=== PATIENT | male | born 1960 | race Caucasian/White ===

== ENCOUNTER 2016-11-12 08:48 | Outpatient (CLI) | payer BC ==
--- NOTE | ~2016-11-12 | HEMODYNAMI ---
PATIENT:YOEL BERNABE MEDICAL RECORD: [id number] : 62 LOCATION:DAbiolaCAT ADMISSION DATE: 11/12/16 Generatedon:11/12/201611:56 Patient name: YOEL BERNABE Patient #: [id number] : 1960 Date of study: 11/12/2016 Page: Of Hemodynamic Procedure Report Patient Data Patient Demographics Procedure consent was obtained First Name: YOEL Gender: Male Last Name: SRINIVASA : 1960 [facility] Initial: Pankaj Age: 56 year(s) Patient #: [id number] Race: SSN: [id number] Additional ID: [id number] Contact details Address: [address] [place] [address] State: [place] City: [place] Zip code: [address] Past Medical History Allergies: No known allergies Admission Admission Data Admission Date: 11/12/2016 Admission Time: 8:48 Arrival Date: 11/12/2016 Arrival Time: 11:00 Admit Source: Other Insurance Payor: Private health insurance Height (in.): 67 BSA: 2.06 (m2) Height (cm.): 170.18 BMI: 32.73 (kg/m2) Weight (lbs.): 209 Weight (kg.): 94.8 Lab Results Lab Result Date: 11/12/2016 Lab Result Time: 0:00 Biochemistry Name Units Result Min Max BUN mg/dl 18 --(---*)-- 7 18 Creatinine mg/dl 0.8 --(-*--)-- 0.6 1.3 Procedure Procedure Types Cath Procedure Diagnostic Procedure C [facility] w/Coronaries PCI Procedure Coronary Stent Initial Peripheral Cath Diagnostic Procedure Cath Peripheral Vjqiy-Lhgqwtl-Lhk-Off Peripheral vascular Intervention Stent Stent Iliac w/plasty Initial Procedure Description Procedure Date Procedure Date: 11/12/2016 Procedure Start Time: 11:30 Procedure End Time: 11:53 Procedure Staff Name Function Richard Paula MD Performing Physician Romulo Velez RT Scrub Venus Victoria RN Nurse Evan Vuong RT Member Service Representative Lesli Rivas RT Monitor Indication Angina Procedure Data Cath Procedure Fluoroscopy Diagnostic fluoroscopy Total fluoroscopy Time: 6.5 time: 6.5 min min Diagnostic fluoroscopy Total fluoroscopy dose: dose: 1066 mGy 1066 mGy Contrast Material Contrast Material Type Amount (ml) Isovue 370 234 Entry Location Entry Primary Successful Side Size Upsize Upsize Entry Closure Succes sful Closure Location (Fr) 1 (Fr) 2 (Fr) Remarks Device Remarks Femoral Right 5 Fr 6 Fr 6 Fr Vascade artery Short Long Closure System Estimated blood loss: 5 ml Diagnostic catheters Device Type Used For End Catheter Placement Cordis 5Fr Pigtail LV Angiography Catheter (MP) Cordis 5Fr JL 4.0 Left Coronary Catheter (MP) Angiography Cordis 5Fr 3DRC Catheter Right Coronary (MP) Angiography Cordis Infinity 5Fr AR 2 Multi-vessel MOD catheter Angiography [place] Sci 5Fr IMT Multi-vessel Catheter Angiography Procedure Complications No complications Procedure Medications Medication Administration Route Dosage Oxygen NC 2 l/min Heparin Flush Bag added to field 2 bags (1000units/500ml NS) Lidocaine 2% added to field 20 Benadryl I.V. 50 mg Versed I.V. 1 mg Fentanyl I.V. 50 mcg Heparin Bolus I.V. 4000 units Versed I.V. 1 mg Fentanyl I.V. 50 mcg Versed I.V. 1 mg Fentanyl I.V. 50 mcg Hemodynamics Rest BSA: 2.06 (m2) O2 Consumption: Estimated: 251.74 (ml/min) O2 Consumption indexed : Estimated:122.2 (ml/min/m) Heart Rate: 80 (bpm) Pressure Samples Time Site Value (mmHg) Purpose Heart Use Rate(bpm) 11:31 LV 134/18,23 Snapshot 95 Snapshots Pre Cath Intra NCS Post Cath Vital Signs Time Heart Resp SPO2 NIBP (mmHg) Rhythm Pain Sedation Rate (ipm) (%) Status Level (bpm) 11:12:03 71 22 99 140/90(119) NSR 0 (11) 10(A) , No pain 11:16:14 68 21 100 153/98(133) NSR 0 (11) 10(A) , No pain 11:20:24 82 22 100 136/89(114) NSR 0 (11) 10(A) , No pain 11:24:30 89 20 98 126/90(113) NSR 0 (11) 10(A) , No pain 11:28:40 89 20 100 140/83(112) NSR 0 (11) 10(A) , No pain 11:32:52 89 29 100 128/80(101) NSR 0 (11) 10(A) , No pain 11:37:04 91 20 100 126/83(97) NSR 0 (11) 9(A) , No pain 11:41:16 92 13 100 137/82(108) NSR 0 (11) 9(A) , No pain 11:45:30 93 14 99 126/80(104) NSR 0 (11) 9(A) , No pain 11:49:42 93 15 99 122/76(98) NSR 0 (11) 9(A) , No pain 11:51:22 94 14 100 126/75(97) NSR 0 (11) 9(A) , No pain Medications Time Medication Route Dose Verified Delivered Reason Notes Effectiveness by by 11:16:15 Oxygen NC 2 Richard Venus Per physician l/min Nisa Victoria RN 11:16:23 Heparin Flush added 2 Richard Richard used for Bag to bags Nisa Paual MD procedure (1000units/500ml field NS) 11:16:30 Lidocaine 2% added 20ml Richard Richard used for to vial Nisa Paula MD procedure field 11:16:37 Benadryl I.V. 50 mg Richard Venus Per physician Nisa Victoria RN 11:29:18 Versed I.V. 1 mg Richard Venus for sedation Nisa Victoria RN 11:29:27 Fentanyl I.V. 50 Richard Venus for sedation mcg Nisa Victoria RN 11:31:29 Versed I.V. 1 mg Richard Venus for sedation Nisa Victoria RN 11:31:36 Fentanyl I.V. 50 Richard Venus for sedation mcg Nisa Victoria RN 11:33:48 Versed I.V. 1 mg Richard Venus for sedation Nisa Victoria RN 11:33:53 Fentanyl I.V. 50 Richard Venus for sedation mcg Nisa Victoria RN 11:40:05 Heparin Bolus I.V. 4000 Richard Venus for dose units Nisa Victoria RN anticoagulation verified [facility] dr paula Procedure Log Time Note 10:52:24 Evan Vuong RT(R) sent for patient. Start room use. 11:04:28 Informed consent obtained and on chart 11:04:33 Diagnostic Cath Status : Elective 11:04:55 Indication : Angina 11:05:25 Admit Source: Other 11:05:28 Patient Height : 170.18 inches 11:05:36 Patient Weight : 94.8 lbs 11:05:36 Insurance Payor : Private health insurance 11:05:43 Arrival Date: 11/12/2016 11:00:00 AM 11:07:30 Time tracking: Regular hours 11:07:37 Plan of Care:Hemodynamics will remain stable., Cardiac rhythm will remain stable., Comfort level will be maintained., Respiratory function will remain adequate., Patient/ family verbilizes understanding of procedure., Procedure tolerated without complication., Recovers from procedure without complications.. 11:07:52 Patient received from Outpatients to [facility] 1 Alert and oriented. Tansferred to table in Supine position. 11:07:54 Warm blankets applied, and lindsey hugger turned on for patient comfort. 11:07:54 Correct patient and procedure confirmed by team. 11:07:55 ECG and BP/O2 sat monitors applied to patient. 11:11:08 Vital chart was started 11:11:13 Rhythm: sinus rhythm 11:11:14 Full Disclosure recording started 11:12:01 H&P Date Dictated: 11/10/2016 Within 30 days and on chart., H&P Addendum completed by physician on day of procedure. (MUST COMPLETE FOR ALL OUTPATIENTS). 11:12:01 Pre-procedure instructions explained to patient. 11:12:02 Pre-op teaching completed and patient verbalized understanding. 11:12:03 Family in waiting room. 11:12:05 Patient NPO since Midnight. 11:12:11 Patient allergic to No known allergies 11:12:14 Is the patient allergic to Iodine/contrast media? No. 11:12:47 Is patient on blood thinner?Yes 11:12:50 ACC The patient was administered the following blood thiners within the last 24 hours: ACCPlavix 11:12:52 Patient diabetic? No. 11:12:54 Previous problem with sedation/anesthesia? No ? 11:12:56 Snore? Yes 11:12:57 Sleep apnea? No 11:12:57 Deviated septum? No 11:12:58 Opens mouth fully? Yes 11:12:59 Sticks out tongue? Yes 11:13:01 Airway obstruction? No ? 11:13:03 Dentures? Yes IN 11:13:07 Pre procedure: right dorsailis pedis pulse 1+ Palpable, but thready & weak; easily obliterated 11:13:09 Pre procedure: left dorsailis pedis pulse 1+ Palpable, but thready & weak; easily obliterated 11:13:11 Patient pain scale 0/10 ?. 11:13:16 IV patent on arrival in left forearm with 0.9% NaCl at [facility]. 11:13:18 Lab results completed and on chart. 11:13:22 Bilateral groins area was prepped with chlora-prep and draped in sterile fashion 11:13:23 Alarms reviewed by R. N. 11:13:23 Sharps counted by scrub and verified by R.N. 11:13:58 Lab Result : BUN 18 mg/dl 11:13:58 Lab Result : Creatinine 0.8 mg/dl 11:14:02 Use device set Femoral Dx 11:14:04 Tegaderm 4 x 4 opened to sterile field. 11:14:04 Acist Manifold opened to sterile field. 11:14:05 Acist Hand Control opened to sterile field. 11:14:06 Acist Syringe opened to sterile field. 11:14:07 Bag Decanter opened to sterile field. 11:14:07 Cardinal Cath Pack opened to sterile field. 11:14:07 Terumo 5Fr [place] Sheath opened to sterile field. 11:14:08 St [place] 260cm J .035 wire opened to sterile field. 11:14:09 Cordis Infinity 5Fr Multipack catheter opened to sterile field. 11:14:34 ACC Patient presents with Stable Angina CCS Anginal Class 2--Slight limitation of ordinary activity. 11:14:52 Baseline sample Acquired. 11:16:15 Oxygen 2 l/min NC was given by Venus Victoria RN; Per physician; 11:16:23 Heparin Flush Bag (1000units/500ml NS) 2 bags added to field was given by Richard Paula MD; used for procedure; 11:16:30 Lidocaine 2% 20ml vial added to field was given by Richard Paula MD; used for procedure; 11:16:37 Benadryl 50 mg I.V. was given by Venus Victoria RN; Per physician; 11:24:06 Zero performed for pressure channel P1 11:28:47 Physician arrived 11::48 --------ALL STOP TIME OUT------ 11::49 Final Timeout: patient, procedure, and site verified with staff and physician. All members of the team are in agreement. 11:28:51 Bilateral groins site verified by team. 11::55 Physical assessment completed. ASA score P 2 - A patient with mild systemic disease as per Richard Paula MD. 11::59 Sedation plan: IV Moderate Sedation Versed, Fentanyl 11:29:08 Procedure started. 11:29:18 Versed 1 mg I.V. was given by Venus Victoria RN; for sedation; 11::27 Fentanyl 50 mcg I.V. was given by Venus Victoria RN; for sedation; 11:30:46 Local anesthetic to right femoral artery with Lidocaine 2% by Richard Paula MD.INITIAL ACCESS ONLY 11:30:57 A 5 Fr sheath was inserted into the Right Femoral artery 11:31:29 Versed 1 mg I.V. was given by Venus Victoria RN; for sedation; 11:31:36 Fentanyl 50 mcg I.V. was given by Venus Victoria RN; for sedation; 11:31:56 A Cordis 5Fr Pigtail Catheter (MP) was advanced over the wire and used for LV Angiography. 11::59 LV hemodynamics recorded. 11:32:00 LV gram done using GUSTAFSON 11:32:03 Injector settings: Ml/sec: 5, Volume: 15, 11:32:14 EF : 60 % 11:32:33 Abdominal angiogram w/ runoff was performed. 11:33:33 Catheter removed. 11:33:40 A Cordis 5Fr JL 4.0 Catheter (MP) was advanced over the wire and used for Left Coronary Angiography. 11:33:48 Versed 1 mg I.V. was given by Venus [place]in[place] RN; for sedation; 11:33:53 Fentanyl 50 mcg I.V. was given by Venus Victoria RN; for sedation; 11:35:45 Catheter removed. unable to cannulate vessel. 11:35:52 A Cordis 5Fr 3DRC Catheter (MP) was advanced over the wire and used for Right Coronary Angiography. 11:36:31 Catheter removed. 11:37:07 A Cordis Infinity 5Fr AR 2 MOD catheter was advanced over the wire and used for Multi-vessel Angiography. 11:37:44 LCA angiography performed. 11:37:47 Injector settings: Ml/sec: 3, Volume: 6, 11:38:44 RCA angiography performed. 11:38:48 Injector settings: Ml/sec: 3, Volume: 6, 11:38:58 Catheter removed. 11:39:22 Allen CÜRisper J 300cm 0.014 guide wire opened to sterile field. 11:39:23 [employer] BasixCompak Inflation Kit opened to sterile field. 11:39:23 Terumo 6Fr [place] Sheath opened to sterile field. 11:39:37 Medtronic Launcher 6Fr AR 2.0 guide catheter opened to sterile field. 11:39:45 Sheath upsized to a 6 Fr Short. 11:39:51 6 Fr ar 2 guide catheter was inserted over the wire 11:40:05 Heparin Bolus 4000 units I.V. was given by Venus Victoria RN; for anticoagulation; dose verified wt dr paula 11:40:58 whisper wire advanced. 11:41:28 Wire advanced across lesion. 11:42:08 Inflation Number: 1 A Medtronic Integrity 2.5 X 12 stent was prepped and advanced across the 1st Diag. The stent was deployed at 11 LON for 0:10 (min:sec). 11:42:42 Stent catheter was removed intact over wire. 11:42:46 Wire removed. 11:42:47 Guide catheter removed. 11:43:29 Arrow 6Fr 45cm Sheath opened to sterile field. 11:43:46 Sheath upsized to a 6 Fr Long. 11:44:02 Terumo ANGLED SS 260CM glide wire opened to sterile field. 11:44:12 glid3e wire advanced. 11:44:29 A [employer] 5Fr IMT Catheter was advanced over the wire and used for Multi-vessel Angiography. 11:45:11 Left leg runoff performed. 11:46:00 Catheter removed. 11:48:35 Inflation Number: 1 A Cordis Adri 7 x 29 x 135 stent was prepped and advanced across the Mid Common Iliac, Left. The stent was deployed at 11 LON for 0:10 (min:sec). 11:49:28 Stent catheter was removed intact over wire. 11:50:12 Sheath downsized to 6F [place] 11:50:19 Vascade 6/7 Fr Closure Device opened to sterile field. 11:50:28 Sheath removed intact; hemostasis achieved with Vascade Closure System to the Right Femoral artery. 11:50:30 Procedure ended.(Physican Out) 11:52:17 Fluoroscopy time 06.50 minutes. 11:52:25 Fluoroscopy dose: 1066 mGy 11:52:25 Flurop Dose total: 1066 11:52:32 Contrast amount:Isovue 370 234ml. 11:52:33 Sharps counted by scrub and verified by R.N. 11:52:36 Insertion/operative site no bleeding no hematoma. 11:52:39 Post-op/insertion site Right Femoral artery dressed using a 4 x 4 and Tegaderm. 11:52:41 Post right femoral artery:stable 11:52:43 Post Procedure Pulses reassessed and unchanged 11:52:45 Post procedure rhythm: unchanged. 11:52:47 Estimated blood loss: 5 ml 11:52:49 Post procedure instruction explained to patient.Patient verbalizes understanding. 11:52:50 Patient needs reinforcement of post procedure teaching. 11:53:16 Procedure type changed to Cath procedure, Diagnostic procedure, LHC, LHC w/Coronaries, PCI procedure, Coronary Stent Initial, Peripheral Cath Diagnostic Procedure, Cath Peripheral, Qmukt-Lkhljtf-Tpw-Off, Peripheral vascular Intervention, Stent, Stent Iliac w/plasty Initial 11:53:27 Procedure and supply charges have been captured, reviewed, submitted and are correct. 11:53:31 Procedure Complication : No complications 11:53:33 Vital chart was stopped 11:53:34 See physician's report for complete and final results. 11:53:37 Report given to Post Procedure Room. 11:53:42 Patient transfered to Post Procedure Room with Stretcher. 11:53:44 Procedure ended. 11:53:44 Full Disclosure recording stopped 11:53:53 ACC-PCI Only Patient was given prescriptions, or instructed by Richadr Paula MD to start/continue the following medications upon discharge: Plavix 11:53:54 End room use (Document Last) Intervention Summary Intervention Notes Time ActionType Lesion and Equipment Action# Pressure Duration Attributes Used 11:42:08 Place stent 1st Diag Medtronic 1 11 00:10 Integrity 2.5 X 12 stent 11:48:35 Place stent Mid Common Cordis 1 11 00:10 Iliac, Left Adri 7 x 29 x 135 stent Device Usage Item Name Manufacture Quantity Catalog Number Hospital Part Current Minim al Lot# / Charge Number Stock Stock Serial# Code Tegaderm 4 3M 1 [id number] [id number] [id number] [id number] 5 x 4 Acist Acist 1 02841 267023 410435 662924 5 Manifold Medical Systems Switch Identity Governance Acist Hand Acist 1 96809 555003 100517 354854 5 Erecruit Systems Switch Identity Governance Acist Acist 1 55286 049764 862509 808177 20 Syringe Lince [employer] - Amniofilm Systems Switch Identity Governance Bag Microtek 1 2002S 959256 88412 333531 5 Mobiscope [employer] Inc. Cardinal Cardinal [address] 826505 45387 925110 5 Cath Pack Health Terumo 5Fr Terumo 1 [id number] 650547 032816 232734 [address] [place] 1 842626 184330 055669 780731 30 260cm J .035 wire Cordis Cardinal 1 [id number] 785719 99386 727664 30 Infinity Health 5Fr Multipack catheter Cordis 5Fr Cardinal 1 508012 5 Pigtail Health Catheter (MP) Cordis 5Fr Cardinal 1 625673 5 JL 4.0 Health Catheter (MP) Cordis 5Fr Cardinal 1 630344 5 3DRC Health Catheter (MP) Cordis Cardinal 1 [id number] 313509 374309 426676 20 Infinity Health 5Fr AR 2 MOD catheter Allen Allen 1 [id number] 606795 272688 762495 5 Whisper J Vascular 300cm 0.014 guide wire Merit Merit 1 LI2508 707613 503535 639606 15 Medisync Bioservices Medical Inflation Kit Terumo 6Fr Terumo 1 BUQ497 742078 068457 493795 40 [place] Sheath Medtronic Medtronic 1 [id number] 911380 63784 250383 1 Launcher 6Fr AR 2.0 guide catheter Medtronic Medtronic 1 [id number] 529682 460795 629818 3 [id number] Integrity 2.5 X 12 stent Arrow 6Fr Teleflex 1 [id number]-[id number] 161485 759035 126152 5 45cm Sheath Terumo Terumo 1 WW2766 261121 297080 696453 5 ANGLED SS 260CM glide wire [place] Sci [place] 1 [id number] 763145 966344 42583 5 5Fr IMT Scientific Catheter Cordis Cardinal 1 [id number] 418736 929790 5 [id number] Adri 7 x Health 29 x 135 stent Vascade 03/30 Cardiva 1 [id number] 527714 037112 024337 5 Fr Closure Medical, Device Inc. Signature Audit [place] Stage Time Signature Unsigned Intra-Procedure 11/12/2016 Lesli Rivas 11:56:48 AM RT(R) Signatures Monitor : Lesli Rivas RT Signature : Date : Time : [place] [id number] [place], [place] [address]
[2016-11-12] MEDS ORDERED: PLAVIX75 MG PO (09:58)
[2016-11-12] MEDS ORDERED: ZESTORETIC 20-1 EACH PO (09:58)
[2016-11-12] MEDS ORDERED: NORVASC5 MG PO (09:59)
[2016-11-12] MEDS ORDERED: LIPITOR20 MG PO (09:59)
[2016-11-12] MEDS ORDERED: BAYER CHEWABLE81 MG PO (10:00)
[2016-11-12 10:48] LABS: BASOPHILS 0.3 % (0.0-2.0); EOSINOPHILS 1.8 % (0-7); HEMATOCRIT 41.8 % (42.0-54.0); HEMOGLOBIN 14.7 g/dL (13.5-17.5); IMMATURE GRANULOCYTES 0.5 % (0-5); LYMPHOCYTES 25.8 % (15-50); MCH 31.4 pg (26.0-34.0); MCHC 35.2 g/dL (31.0-37.0); MCV 89.3 fL (80.0-100.0); MEAN PLATELET VOLUME 9.7 fL (7.4-10.4); MONOCYTES 7.6 % (2-11); PLATELET COUNT 257 10x3/uL (130-400); RBC 4.68 10x6/uL (4.20-6.10); RDW 12.7 % (11.5-14.5); WBC 8.8 10x3/uL (4.8-10.8)
[2016-11-12 11:01] LABS: CALC OSMOLALITY 276 mosm/kg (275-300); CALCIUM 10.4 mg/dL (8.5-10.1); CARBON DIOXIDE 23.8 mmol/L (21.0-32.0); CHLORIDE - SERUM 102 mmol/L (98-107); CREATININE - SERUM 0.8 mg/dL (0.6-1.3); GLUCOSE 110 mg/dL (74-106); POTASSIUM - SERUM 4.7 mmol/L (3.5-5.1); SODIUM 137 mmol/L (136-145); UREA NITROGEN 18 mg/dL (7-18); eGFR NON AFRICAN AMERICAN > 90 mL/min (90-120)
[2016-11-12 11:05] LABS: APTT 26.7 SECONDS (22.8-39.4); INR 0.91 (0.85-1.17); PROTIME 12.1 SECONDS (11.6-15.0)
--- NOTE | 2016-11-12 12:15 | NUR ---
1215 CHEST PAIN IS DENIED WITH HR NSR 82 BP 136/81 6 FR VASCADE R/GROIN CDI NO BLEEDING NO HEMATOMA NOTED. INSTRUCTED PATIENT TO KEEP HEAD FLAT ON PILLOW WITH RLE STRAIGHT
--- NOTE | 2016-11-12 12:30 | NUR ---
1230 NO C/O OF CHEST PAIN WITH HR NSR 76 BP 120/69 6 FR VASCADE R/GROIN CDI NO BLEEDING NO HEMATOMA NOTED WILL MONITOR
--- NOTE | 2016-11-12 13:30 | NUR ---
NO CHANGE IN ASSESSMENT WILL MONITOR
--- NOTE | 2016-11-12 14:35 | NUR ---
PATIENT SLEEPING QUIETLY NO DISTRESS NOTED WILL MONITOR
--- NOTE | 2016-11-12 15:04 | NUR ---
REPOSITIONED TO SITTING WITH HOB UP30 DEGREES CHEST PAIN DENIED 6 FR VASCADE R/GROIN CDI NO BLEEDING NO HEMATOMA SANDWICH AND SODA TO BEDSIDE
--- NOTE | 2016-11-12 15:51 | NUR ---
DISCHARGE INSTRUCTIONS GONE OVER WITH PATIENT AND FAMILY LEFT VIA WC TO [facility] FOR TRANSPORT HOME
--- NOTE | 2016-11-12 16:40 | OP ---
PATIENT NAME: YOEL BERNABE MEDICAL RECORD: [id number] :62 LOCATION:D.CAT ADMISSION DATE: SURGEON: TOR ANDERSEN MD DATE OF OPERATION: 11/12/2016 PROCEDURES: 1. PTCA stent LAD diagonal. 2. Left heart catheterization. 3. Selective coronary angiography. 4. Left ventriculogram. INDICATION: Angina and coronary artery disease. PROCEDURE IN DETAIL: After informed consent was obtained and after detailed explanation of risks, benefits as well as alternative therapies, the patient elected to proceed with angiogram and angioplasty. The right femoral area had a preexisting sheath from peripheral intervention. All catheters exchanged through this sheath. FINDINGS: The left ventriculogram was performed in standard 30-degree GUSTAFSON view, reveals good cardiac wall motion throughout all segments. Overall ejection fraction estimated at 60%. SELECTIVE CORONARY ANGIOGRAPHY: 1. Left main comes off the right coronary cusp, right coronary is small, nondominant. Left main is free of disease. 2. Left circumflex shows moderate irregularities, but no flow-limiting stenosis. 3. The left anterior descending has a relatively large diagonal with 90% stenosis at the ostium. PERCUTANEOUS TRANSLUMINAL CORONARY ANGIOPLASTY STENT OF THE LEFT ANTERIOR DESCENDING DIAGONAL: Stent used is a 2.5 x 14 mm Integrity. Result was 0% residual stenosis. OVERALL IMPRESSION: Successful percutaneous transluminal coronary angioplasty stent of the left anterior descending diagonal going from 80% to 90% initial stenosis to 0% residual. TRANSINT:[id number] Voice Confirmation ID: [id number] DOCUMENT ID: [id number] TOR ANDERSEN MD at 1640 CC: [id number] DICTATION DATE: 11/12/16 1158 CHANNEL CEMENTER OUTSOLE MACHINE: 11/12/16 1415 DEP CLI 11/12/16 [place] [id number]
--- NOTE | 2016-11-12 16:40 | OP ---
PATIENT NAME: YOEL BERNABE MEDICAL RECORD: [id number] :62 LOCATION:D.CAT ADMISSION DATE: SURGEON: TOR ANDERSEN MD DATE OF OPERATION: 11/12/2016 PROCEDURES: 1. TAG MAKER stent, left iliac. 2. Aortofemoral runoff. 3. Abdominal aortography. INDICATION: Claudication and peripheral vascular disease. PROCEDURE IN DETAIL: After informed consent was obtained and after detailed explanation of risks, benefits as well as alternative therapies, the patient elected to proceed with angiogram and angioplasty. The right femoral area was prepped and draped in normal sterile fashion. The right femoral artery was cannulated via modified Seldinger technique with placement of a 6-Latvian wnbetn-kml-ofni sheath. All catheters exchanged through this sheath. FINDINGS: The abdominal aortography was performed. The catheter was pulled down for aortofemoral runoff. Abdominal aortography reveals no significant abdominal aortic disease. No dissection or aneurysm formation. No renal artery stenosis. RIGHT LEG: A. Iliac: The common internal and external iliacs have moderate irregularities, but no flow-limiting stenosis. B. Femoral system: The common and deep femoral are widely patent. Superficial femoral has multiple areas of 80% or greater stenosis. C. Popliteal and infrapopliteal vessels are patent with good 3-vessel runoff to the foot. LEFT LEG: A. Iliac. The common iliac is widely patent. The external iliac has an 80% stenosis. B. Femoral system: The common and deep femoral are widely patent. Superficial femoral was totally occluded from the ostium all the way to the distal superficial femoral. The distal superficial femoral fills via collaterals off deep. This is widely patent. C. Popliteal and infrapopliteal vessels are patent. PERCUTANEOUS TRANSLUMINAL ANGIOPLASTY STENT OF THE LEFT ILIAC: We fixed the left iliac so fem-pop could be performed on the left leg. The left iliac was addressed with a 7 x 29 Cordis Adri stent. Result was 0% residual stenosis. OVERALL IMPRESSION: Successful percutaneous transluminal angioplasty stent of the left iliac going from 80% initial stenosis to 0% residual. Evaluate for femoral popliteal bypass graft surgery. TRANSINT:[id number] Voice Confirmation ID: [id number] DOCUMENT ID: [id number] OPERATIVE REPORT [id number] SRINIVASAYOEL TOR GRAJEDA MD at 1640 CC: [id number] DICTATION DATE: 11/12/16 1156 ACTIVITIES LEADER: 11/12/16 1406 DEP CLI 11/12/16 [place] [id number] [place] [id number]
== END 2016-11-12 15:52 | disposition home or self-care (01) ==
LOC: D.CATH 08:48
PROVIDERS: Internal Medicine Interventional Cardiology; Specialist
DX: I70.212 Atherosclerosis of native arteries of extremities with intermittent claudication, left leg (principal); I10 Essential (primary) hypertension; R94.31 Abnormal electrocardiogram [ECG] [EKG]; E78.5 Hyperlipidemia, unspecified; R06.09 Other forms of dyspnea; F17.200 Nicotine dependence, unspecified, uncomplicated

== ENCOUNTER 2016-11-25 05:17 | Outpatient (CLI) | payer BC ==
[2016-11-12 10:09] VITALS: BP 144/86; Ht 170.2 cm; Wt 93.2 kg
[~2016-11-25] VITALS: Ht 170.2 cm; Wt 93.2 kg
--- NOTE | ~2016-11-25 | HEMODYNAMI ---
PATIENT:YOEL BERNABE MEDICAL RECORD: [id number] : 62 [id number] ADMISSION DATE: 11/25/16 Generatedon:11/25/201610:13 Patient name: YOEL BERNABE Patient #: [id number] : 1960 Date of study: 11/25/2016 Page: Of Hemodynamic Procedure Report Patient Data Patient Demographics Procedure consent was obtained First Name: YOEL Gender: Male Last Name: SRINIVASA : 1960 [facility] Initial: Pankaj Age: 56 year(s) Patient #: [id number] Race: SSN: [id number] Additional ID: [id number] Contact details Address: [address] [place] [address] State: [place] City: [place] Zip code: [address] Past Medical History Allergies: No known allergies Admission Admission Data Admission Date: 11/25/2016 Admission Time: 5:17 Height (in.): 67 BSA: 2.04 (m2) Height (cm.): 170.18 BMI: 32.11 (kg/m2) Weight (lbs.): 205 Weight (kg.): 92.99 Procedure Procedure Types Cath Procedure Peripheral Cath Diagnostic Procedure Cath Peripheral Abd/Extremity Extremities Bilat Lower Extremity Procedure Description Procedure Date Procedure Date: 11/25/2016 Procedure Start Time: 8:32 Procedure Staff Name Function Gigi Bradshaw RT Scrub Alcira Pereira RN Nurse Dianna Williamson RT Park Attendant Dianna Williamson RT Monitor Joon Hyatt MD Performing Physician Procedure Data Cath Procedure Fluoroscopy Diagnostic fluoroscopy Total fluoroscopy Time: time: 21.4 min 21.4 min Diagnostic fluoroscopy Total fluoroscopy dose: dose: 604.97 mGy 604.97 mGy Entry Location Entry Primary Successful Side Size Upsize Upsize Entry Closure Succes sful Closure Location (Fr) 1 (Fr) 2 (Fr) Remarks Device Remarks Femoral Right 5 Fr artery Femoral Mynx artery Nut Grinder 6Fr/7Fr Diagnostic catheters Device Type Used For End Catheter Placement Merit ULTRA BOLUS FLUSH 5Fr 65CM catheter [place] Sci 5Fr IMT Catheter Procedure Medications Medication Administration Route Dosage Oxygen NC 3 l/min Heparin Flush Bag added to field 3 bags (1000units/500ml NS) Lidocaine 1% added to field 20 Versed I.V. 1 mg Fentanyl I.V. 50 mcg Versed I.V. 1 mg Fentanyl I.V. 50 mcg Versed I.V. 1 mg Heparin Bolus I.V. 4000 units Versed I.V. 1 mg Fentanyl I.V. 25 mcg Nitroglycerin IC/IA I.A. 250 mcg Fentanyl I.V. 50 mcg Versed I.V. 1 mg Versed I.V. 1 mg Fentanyl I.V. 25 mcg Nitroglycerin IC/IA I.A. 250 mcg Fentanyl I.V. 50 mcg Heparin Bolus I.V. 1000 units Fentanyl I.V. 50 mcg Hemodynamics Rest BSA: 2.04 (m2) O2 Consumption: Estimated: 245.08 (ml/min) O2 Consumption indexed : Estimated:120.14 (ml/min/m) Heart Rate: 74 (bpm) Snapshots Pre Cath Intra NCS Post Cath Vital Signs Time Heart Resp SPO2 NIBP (mmHg) Rhythm Pain Status Sedation Rate (ipm) (%) Level (bpm) 8:18:28 72 13 98 139/94(116) NSR 0 (11) , No 10(A) pain 8:22:42 88 21 99 127/85(100) NSR 0 (11) , No 10(A) pain 8:26:56 84 17 98 117/75(88) NSR 0 (11) , No 10(A) pain 8:31:12 85 17 98 126/71(101) NSR 0 (11) , No 10(A) pain 8:35:28 84 13 98 117/67(91) NSR 0 (11) , No 10(A) pain 8:39:44 83 15 98 108/69(83) NSR 0 (11) , No 9(A) pain 8:43:58 81 18 98 100/62(76) NSR 0 (11) , No 9(A) pain 8:48:10 80 14 99 101/59(73) NSR 0 (11) , No 9(A) pain 8:52:18 82 19 98 103/67(81) NSR 0 (11) , No 9(A) pain 8:56:26 82 18 98 117/74(89) NSR 0 (11) , No 9(A) pain 9:00:42 82 16 98 108/69(81) NSR 0 (11) , No 10(A) pain 9:05:33 85 20 99 126/85(103) NSR 0 (11) , No 9(A) pain 9:09:51 81 20 98 115/73(88) NSR 0 (11) , No 9(A) pain 9:14:11 83 20 97 126/67(91) NSR 0 (11) , No 9(A) pain 9:19:02 80 18 98 129/78(105) NSR 0 (11) , No 10(A) pain 9:23:24 83 17 98 123/81(94) NSR 0 (11) , No 9(A) pain 9:27:40 85 13 96 136/81(107) NSR 0 (11) , No 9(A) pain 9:31:58 84 18 98 145/91(119) NSR 6 (11) , 10(A) Intense 9:36:16 89 18 98 142/89(116) NSR 7 (11) , 10(A) Very intense 9:40:32 73 14 96 121/84(105) NSR 0 (11) , No 9(A) pain 9:45:31 83 16 99 Measuring NSR 0 (11) , No 9(A) pain 9:45:47 85 16 98 135/73(99) NSR 0 (11) , No 9(A) pain 9:50:08 87 17 98 135/88(119) NSR 5 (11) , 10(A) Very distressing 9:54:30 82 13 94 128/80(108) NSR 0 (11) , No 9(A) pain 9:58:46 86 14 94 133/82(98) NSR 0 (11) , No 9(A) pain 10:03:08 85 15 99 135/82(103) NSR 0 (11) , No 10(A) pain 10:07:28 83 15 96 133/90(102) NSR 0 (11) , No 10(A) pain 10:11:28 No Cuff NSR 0 (11) , No 10(A) pain Medications Time Medication Route Dose Verified Delivered Reason Notes Effectiveness by by 8:22:11 Oxygen NC 3 Alcira Alcira Per protocol l/min King KATYA Pereira RN 8:22:25 Heparin Flush added 3 Alcira Alcira used for Bag to bags King KATYA Pereira pay station attendant (1000units/500ml field NS) 8:22:35 Lidocaine 1% added 20ml Alcira Alcira for local to vial King KATYA Pereira RN anesthetic field 8:28:53 Versed I.V. 1 mg Alcira Alcira for sedation King KATYA Pereira RN 8:29:00 Fentanyl I.V. 50 Alcira Alcira for sedation mcg King KATYA Pereira RN 8:35:03 Versed I.V. 1 mg Alcira Alcira for sedation King KATYA Pereira RN 8:35:07 Fentanyl I.V. 50 Alcira Alcira for sedation mcg King KATYA Pereira RN 8:41:30 Versed I.V. 1 mg Alcira Alcira for sedation King KATYA Pereira RN 8:41:49 Heparin Bolus I.V. 4000 Alcira Alcira for units King KATYA Pereira RN anticoagulation 9:00:48 Versed I.V. 1 mg Alcira Alcira for sedation King KATYA Pereira RN 9:00:54 Fentanyl I.V. 25 Alcira Alcira for sedation mcg King KATYA Pereira RN 9:07:57 Nitroglycerin I.A. 250 Joon Dupree for IC/IA mcg Edmar randolph MD, MD 9:10:03 Fentanyl I.V. 50 Alcira Alcira for sedation mcg King KATYA Pereira RN 9:21:45 Versed I.V. 1 mg Alcira Alcira for sedation King KATYA Pereira RN 9:30:21 Nitroglycerin I.A. 250 Joon Dupree for IC/IA mcg Edmar randolph MD, MD 9:31:44 Versed I.V. 1 mg Alcira Alcira for sedation King KATYA Pereira RN 9:32:06 Fentanyl I.V. 25 Alcira Alcira for sedation mcg King KATYA Pereira RN 9:38:52 Fentanyl I.V. 50 Alcira Alcira for LEG PAIN mcg King KATYA Pereira RN 9:42:32 Heparin Bolus I.V. 1000 Alcira Alcira for units King KATYA Pereira RN anticoagulation 9:53:36 Fentanyl I.V. 50 Alcira Alcira for LEG PAIN mcg King KATYA Pereira skip pitman Log Time Note 8:03:04 Patient Weight : 205 lbs 8:03:11 Patient Height : 67 inches 8:03:40 Use device set IR Diagnostic 8:03:43 Sterile Angiographic Pack opened to sterile field. 8:03:44 Bag Decanter opened to sterile field. 8:03:46 Acist Manifold opened to sterile field. 8:03:47 Acist Hand Control opened to sterile field. 8:03:49 Acist Syringe opened to sterile field. 8:04:39 Cook BENTSON 145cm guide wire opened to sterile field. 8:04:40 Micropuncture VSI 4FR kit opened to sterile field. 8:04:44 [facility] [place] 5FR Sheath opened to sterile field. 8:04:[address] .035 glide wire opened to sterile field. 8:05:22 A [email or web address] ULTRA BOLUS FLUSH 5Fr 65CM catheter was advanced over the wire and used for . 8:09:08 Time tracking: Regular hours 8:09:17 Plan of Care:Hemodynamics will remain stable., Cardiac rhythm will remain stable., Comfort level will be maintained., Respiratory function will remain adequate., Patient/ family verbilizes understanding of procedure., Procedure tolerated without complication., Recovers from procedure without complications.. 8:09:22 Correct patient and procedure confirmed by team. 8:09:25 Signed procedure consent form obtained from patient. 8:09:27 - 8:09:33 H&P Date Dictated: 11/25/2016 Within 30 days and on chart.. 8:09:35 Pre-procedure instructions explained to patient. 8:09:36 Pre-op teaching completed and patient verbalized understanding. 8:09:40 Family in waiting room. 8:09:43 Patient NPO since Midnight. 8:09:47 Is the patient allergic to Iodine/contrast media? No. 8:09:50 Is patient on blood thinner?Yes 8:09:57 The patient was administered the following blood thiners within the last 24 hours: ACCAspirin, ACCPlavix 8:10:31 Patient diabetic? No. 8:10:33 - 8:10:35 ----Pre-sedation anethsthesia assessment.---- 8:10:39 Previous problem with sedation/anesthesia? No ? 8:10:43 Snore? Yes 8:10:46 Sleep apnea? No 8:10:56 Deviated septum? No 8:10:58 Opens mouth fully? Yes 8:11:01 Sticks out tongue? Yes 8:11:04 Airway obstruction? No ? 8:11:16 Dentures? Yes uppers, secure 8:11:25 Pre procedure: right dorsailis pedis pulse Doppler 8:11:30 Pre procedure: right posterior tibial pulse Doppler 8:11:34 Pre procedure: left dorsailis pedis pulse Doppler 8:11:39 Pre procedure: left posterior tibial pulse Doppler 8:11:56 IV patent on arrival in left hand with 0.9% NaCl at [facility]. 8:12:07 - 8:17:19 Vital chart was started 8:20:51 Baseline sample Acquired. 8:20:51 ECG and BP/O2 sat monitors applied to patient. 8:20:53 Full Disclosure recording started 8:20:54 - 8:21:05 Right groin area was prepped with chlora-prep and draped in sterile fashion 8:21:20 Alarms reviewed by Prabhakar Gómez 8:21:21 Sharps counted by scrub and verified by Terri 8::22 - 8:22:11 Oxygen 3 l/min NC was given by Alcira Pereira RN; Per protocol; 8:22:25 Heparin Flush Bag (1000units/500ml NS) 3 bags added to field was given by Alcira Pereira RN; used for procedure; 8:22:35 Lidocaine 1% 20ml vial added to field was given by Alcira Pereira RN; for local anesthetic; 8:26:09 A [employer] 5Fr IMT Catheter was advanced over the wire and used for . 8:27:48 Physician arrived 8:27:49 Final Timeout: patient, procedure, and site verified with staff and physician. All members of the team are in agreement. 8:27:49 --------ALL STOP TIME OUT------ 8:27:53 Right groin site verified by team. 8:27:59 Physical assessment completed. ASA score P 3 - A patient with severe systemic disease as per Joon Hyatt MD. 8:28:07 Sedation plan: IV Moderate Sedation Versed, Fentanyl, Lidocaine 8:28:53 Versed 1 mg I.V. was given by Alcira Pereira RN; for sedation; 8:29:00 Fentanyl 50 mcg I.V. was given by Alcira Pereira RN; for sedation; 8:32:45 Procedure started. 8:32:56 Local anesthetic to right femoral artery with Lidocaine 1% by Joon Hyatt MD.INITIAL ACCESS ONLY 8:32:59 Arterial access obtained using ultrasound guidance. 8:33:14 A 5 Fr sheath was inserted into the Right Femoral artery 8:35:03 Versed 1 mg I.V. was given by Alcira Pereira RN; for sedation; 8:35:07 Fentanyl 50 mcg I.V. was given by Alcira Pereira RN; for sedation; 8:40:32 Terumo 6Fr [place] Destination Sheath opened to sterile field. 8:40:47 Cook LISA 260 guide wire opened to sterile field. 8:40:51 CXI Catheter 90cm opened to sterile field. 8:41:30 Versed 1 mg I.V. was given by Alcira Pereira RN; for sedation; 8:41:49 Heparin Bolus 4000 units I.V. was given by Alcira Pereira RN; for anticoagulation; 8:44:00 Angiography was performed. 8:51:50 Terumo ANGLE 260L glide wire opened to sterile field. 8:51:57 Angiography was performed. 8:58:38 Turbohawk 1 Large Atherectomy catheter opened to sterile field. 8:58:40 VIPER .014 335 CM guide wire opened to sterile field. 8:58:40 SPIDER EMBOLIC PROTECTION DEVICE 6MM opened to sterile field. 9:00:48 Versed 1 mg I.V. was given by Alcira Pereira RN; for sedation; 9:00:54 Fentanyl 25 mcg I.V. was given by Alcira Pereira RN; for sedation; 9:07:57 Nitroglycerin IC/IA 250 mcg I.A. was given by Joon Hyatt MD; for vasodilation; 9:10:03 Fentanyl 50 mcg I.V. was given by Alcira Pereira RN; for sedation; 9:21:45 Versed 1 mg I.V. was given by Alcira Pereira RN; for sedation; 9:27:35 BasixTOUCH Inflation Syringe opened to sterile field. 9:30:21 Nitroglycerin IC/IA 250 mcg I.A. was given by Joon Hyatt MD; for vasodilation; 9:31:05 Inflation number: 1 A IN.PACT Admiral 6 x 150 balloon was prepped and advanced across the Undefined1, then inflated to 14 LON for 2:42 (min:sec). 9:31:44 Versed 1 mg I.V. was given by Alcira Pereira RN; for sedation; 9:32:06 Fentanyl 25 mcg I.V. was given by Alcira Pereira RN; for sedation; 9:35:21 Inflation number: 2 The IN.PACT Admiral 6 x 150 balloon was reinflated across the Undefined1, to 14 LON for 3:44 (min:sec). 9:38:52 Fentanyl 50 mcg I.V. was given by Alcira Pereira RN; for LEG PAIN; 9:42:32 Heparin Bolus 1000 units I.V. was given by Alcira Pereira RN; for anticoagulation; 9:46:26 Cordis SMART 6 X 40 X 120 stent was deployed across Undefined1 . 9:53:36 Fentanyl 50 mcg I.V. was given by Alcira Pereira RN; for LEG PAIN; 9:59:49 St [place] 6Fr sheath opened to sterile field. 10:00:02 MYNX HAND COUNTER 6FR/7FR opened to sterile field. 10:00:35 Sheath removed intact; hemostasis achieved with Mynx Nut Grinder 6Fr/7Fr to th e Femoral artery. 10:00:35 A sheath was inserted into the Femoral artery 10:02:46 Procedure ended.(Physican Out) 10::46 Fluoroscopy time 21.40 minutes. 10:07:55 Fluoroscopy dose: 604.97 mGy 10:07:55 Flurop Dose total: 604.97 10:13:15 Procedure and supply charges have been captured, reviewed, submitted an d are correct. 10:13:37 Vital chart was stopped Intervention Summary Intervention Notes Time ActionType Lesion and Equipment Action# Pressure Duration Attributes Used 9:31:05 Inflate Undefined1 IN.PACT 1 14 02:42 balloon Admiral 6 x 150 balloon 9:35:21 Reinflate Undefined1 IN.PACT 2 14 03:44 balloon Admiral 6 x 150 balloon 9:46:26 Deploy self Undefined1 Cordis 1 expanding SMART 6 X stent 40 X 120 stent Device Usage Item Name Manufacture Quantity Catalog Number [facility] Minimal Lot# / Charge Number Stock Stock Serial# Code Sterile Cardinal 1 [id number] 5 Angiographic Health Pack Bag Decanter Microtek 1 [id number] 42276 148304 5 Medical Inc. Acist Acist Medical 1 88501 698195 145114 544387 5 Manifold Systems Inc Acist Hand Acist Medical 1 06593 810176 144441 691129 5 Control Systems Inc Acist Syringe Acist Medical 1 18830 086843 711199 385748 20 Systems Inc Cook [facility] 1 Z04519 835110 375883 5 [id number] 145cm guide wire Micropuncture VSI VASCULAR 1 7266V 186436 062605 5 VSI 4FR kit [address] [place] [address]FR [facility] [place] 1 736922 285893 659946 5 [id number] Sheath Cook Cook Medical 1 T16574 533444 862165 [id number] 260 .035 glide wire [employer]DS[employer] [facility] Transcast Media 1 [id number] 976213 889786 5 BOLUS FLUSH 5Fr 65CM catheter [place] Sci [place] 1 [id number] 556345 829186 77673 5 5Fr IMT Scientific Catheter Terumo 6Fr Terumo 1 RSR01 620465 24772 607307 5 [place] Destination Sheath Cook LISA [facility] 1 S78561 260757 828673 5 3591389 260 guide wire CXI Catheter [facility] 1 Z03072 528306 560994 755665 5 90cm Terumo ANGLE Terumo 1 UH5456 470231 013569 5 260L glide wire Turbohawk 1 Ev3 1 H1-M 639204 448183 831848 5 Large Atherectomy catheter VIPER .014 Cardiovascular 1 [id number] 548603 766074 5 335 CM guide systems wire SPIDER Medtronic 1 [id number] 197707 860307 5 EMBOLIC PROTECTION DEVICE 6MM [facility] 1 LI2247 098890 277587 191034 5 Inflation Syringe IN.PACT Medtronic 1 [id number] 444276 8269507 626117 5 Admiral 6 x 150 balloon Cordis SMART Cardinal 1 [id number] 285021 112111 373019 0 [id number] 6 X 40 X [address] [place] [address] [facility] [place] 1 969847 164912 353324 5 [id number] sheath MYNX HAND COUNTER Access Closure 1 BT6985 636076 066839 5 6FR/7FR Signature Audit [place] Stage Time Signature Unsigned Intra-Procedure 11/25/2016 Dianna Williamson 10:13:32 AM RT(R) Signatures Monitor : Dianna Williamson RT Signature : Date : Time : [facility] [address] [place] [address]
[~2016-11-25 05:17] MED LIST: BAYER CHEWABLE81 MG PO; LIPITOR20 MG PO; NORVASC5 MG PO; PLAVIX75 MG PO; ZESTORETIC 20-1 EACH PO
[2016-11-25 06:20] VITALS: BP 134/90; BMI 32.2
[2016-11-25 06:22] LABS: BASOPHILS 0.2 % (0.0-2.0); EOSINOPHILS 2.7 % (0-7); HEMATOCRIT 39.4 % (42.0-54.0); HEMOGLOBIN 13.9 g/dL (13.5-17.5); IMMATURE GRANULOCYTES 0.2 % (0-5); LYMPHOCYTES 22.8 % (15-50); MCH 30.9 pg (26.0-34.0); MCHC 35.3 g/dL (31.0-37.0); MCV 87.6 fL (80.0-100.0); MEAN PLATELET VOLUME 8.8 fL (7.4-10.4); MONOCYTES 9.7 % (2-11); NEUTROPHILS 64.4 % (40-80); PLATELET COUNT 276 10x3/uL (130-400); RDW 12.5 % (11.5-14.5); WBC 8.9 10x3/uL (4.8-10.8)
[2016-11-25 06:31] LABS: APTT 28.1 SECONDS (22.8-39.4); INR 0.84 (0.85-1.17); PROTIME 11.4 SECONDS (11.6-15.0)
[2016-11-25 06:38] LABS: CALC OSMOLALITY 274 mosm/kg (275-300); CALCIUM 9.4 mg/dL (8.5-10.1); CARBON DIOXIDE 24.8 mmol/L (21.0-32.0); CHLORIDE - SERUM 101 mmol/L (98-107); CREATININE - SERUM 0.9 mg/dL (0.6-1.3); GLUCOSE 118 mg/dL (74-106); POTASSIUM - SERUM 4.1 mmol/L (3.5-5.1); SODIUM 135 mmol/L (136-145); UREA NITROGEN 24 mg/dL (7-18); eGFR NON AFRICAN AMERICAN > 90 mL/min (90-120)
--- NOTE | 2016-11-25 10:30 | NUR ---
RECEIVED FROM IR POST AFRO WITH INTERVENTION. RIGHT GROIN DRESSING C/D/I. PEDAL PULSES PALPABLE BILATERALLY. RIGHT LEG TO REMAIN STRAIGHT, PATIENT IS AWARE. STATES PAIN LEVEL IS A "3" ON A SCALE OF 1-10 AND DENIES NEED FOR MEDICAL INTERVENTION. FAMILY AT BEDSIDE.
--- NOTE | 2016-11-25 11:07 | NUR ---
NORCO 5MG PO FOR C/O PAIN LEFT LEG BETWEEN KNEE AND THIGH. EATING REG LUNCH TRAY WITHOUT NAUSEA.
--- NOTE | 2016-11-25 13:30 | NUR ---
VITAL SIGNS STABLE, SEE POST PROCEDURE VITAL SIGN SHEET. RIGHT GROIN DRESSING C/D/I. PEDAL PULSES PALPABLE BILATERALLY.
--- NOTE | 2016-11-25 14:12 | NUR ---
IV REMOVED INTACT. GETTING DRESSED. IR NURSE HAS SEEN HIM AND HE IS AWARE OF SCHEDULE TO RETURN TO THE [facility] ON THE FOR PROCEDURE ON RIGHT LEG. RIGHT GROIN DRESSING C/D/I, NO BLEEDING OR HEMATOMA NOTED. VITAL SIGNS STABLE, SEE POST PROCEDURE VITAL SIGN SHEET.
--- NOTE | 2016-11-25 14:20 | NUR ---
DISCHARGE INSTRUCTION GIVEN, VOICED UNDERSTANDING. DISCHARGED HOME VIA .
== END 2016-11-25 14:20 ==
LOC: D.OPS 05:17 → D.SP 08:00 → D.OPS 14:20
PROVIDERS: Radiology Diagnostic Radiology
DX: I70.212 Atherosclerosis of native arteries of extremities with intermittent claudication, left leg (principal)

== ENCOUNTER 2016-12-07 05:44 | Outpatient (CLI) | payer BC ==
[~2016-12-07] VITALS: Ht 170.2 cm; Wt 93.2 kg
--- NOTE | ~2016-12-07 | HEMODYNAMI ---
PATIENT:YOEL BERNABE MEDICAL RECORD: [id number] : 62 LOCATION:[facility] ADMISSION DATE: 12/07/16 Generatedon:12/07/20169:31 Patient name: YOEL BERNABE Patient #: [id number] : 1960 Date of study: 12/07/2016 Page: Of Hemodynamic Procedure Report Patient Data Patient Demographics Procedure consent was obtained First Name: YOEL Gender: Male Last Name: SRINIVASA : 1960 [facility] Initial: Pankaj Age: 56 year(s) Patient #: [id number] Race: SSN: [id number] Additional ID: [id number] Contact details [address]: [address] [place] [address] State: [place] City: [place] Zip code: [address] Past Medical History Allergies: No known allergies Admission Admission Data Admission Date: 12/07/2016 Admission Time: 5:44 Procedure Procedure Types Cath Procedure Peripheral Cath Diagnostic Procedure Cath Peripheral Abd/Extremity Extremities Right Lower Ext Arterio Procedure Description Procedure Date Procedure Date: 12/07/2016 Procedure Start Time: 8:25 Procedure Staff Name Function Joon Hyatt MD Performing Physician Gigi Bradshaw RT Scrub Evangelina Medrano RN Nurse Dianna Williamson RT Protein Purification Scientist Dianna Williamson RT Monitor Procedure Data Cath Procedure Fluoroscopy Diagnostic fluoroscopy Total fluoroscopy Time: 8.9 time: 8.9 min min Diagnostic fluoroscopy Total fluoroscopy dose: dose: 803.91 mGy 803.91 mGy Contrast Material Contrast Material Type Amount (ml) Isovue 300 55 Entry Location Entry Primary Successful Side Size Upsize Upsize Entry Closure Succes sful Closure Location (Fr) 1 (Fr) 2 (Fr) Remarks Device Remarks Femoral Left Mynx artery Director Risk 6Fr/7Fr Diagnostic catheters Device Type Used For End Catheter Placement Speedwell Sci 5Fr IMT Catheter Procedure Medications Medication Administration Route Dosage Oxygen NC 3 l/min Lidocaine 1% added to field 20 Heparin Flush Bag added to field 3 bags (1000units/500ml NS) Benadryl I.V. 50 mg Versed I.V. 1 mg Fentanyl I.V. 50 mcg Versed I.V. 0.5 mg Fentanyl I.V. 25 mcg Heparin Bolus I.V. 4000 units Nitroglycerin IC/IA I.C. 300 mcg Versed I.V. 0.5 mg Fentanyl I.V. 25 mcg Versed I.V. 0.5 mg Fentanyl I.V. 25 mcg Hemodynamics Rest Heart Rate: 80 (bpm) Snapshots Pre Cath Intra NCS Post Cath Vital Signs Time Heart Resp SPO2 NIBP (mmHg) Rhythm Pain Sedation Rate (ipm) (%) Status Level (bpm) 8:10:25 81 20 100 132/72(95) NSR 0 (11) 10(A) , No pain 8:14:39 77 21 100 130/79(103) NSR 0 (11) 10(A) , No pain 8:18:55 81 20 100 134/80(108) NSR 0 (11) 10(A) , No pain 8:23:11 79 22 100 126/70(85) NSR 0 (11) 10(A) , No pain 8:27:25 77 20 100 117/71(89) NSR 0 (11) 10(A) , No pain 8:31:37 80 17 100 114/68(87) NSR 0 (11) 9(A) , No pain 8:35:49 82 16 100 128/75(100) NSR 0 (11) 9(A) , No pain 8:39:59 79 17 100 119/76(100) NSR 0 (11) 9(A) , No pain 8:44:09 80 18 100 118/76(92) NSR 0 (11) 9(A) , No pain 8:48:19 80 21 100 127/75(104) NSR 0 (11) 9(A) , No pain 8:52:33 81 19 100 130/68(97) NSR 0 (11) 9(A) , No pain 8:56:49 77 18 100 131/75(114) NSR 0 (11) 9(A) , No pain 9:01:05 81 18 100 118/79(105) NSR 0 (11) 9(A) , No pain 9:05:17 82 19 100 127/77(106) NSR 0 (11) 9(A) , No pain 9:09:26 84 17 100 127/76(94) NSR 0 (11) 9(A) , No pain 9:13:45 86 16 99 123/64(95) NSR 0 (11) 9(A) , No pain 9:18:01 82 18 100 131/67(108) NSR 0 (11) 9(A) , No pain 9:22:15 82 19 100 128/78(105) NSR 0 (11) 9(A) , No pain 9:26:31 79 18 99 121/76(114) NSR 0 (11) 9(A) , No pain 9:30:30 No Cuff NSR 0 (11) 9(A) , No pain Medications Time Medication Route Dose Verified Delivered Reason Notes Ef fectiveness by by 8:17:03 Oxygen NC 3 Evangelina Evangelina used for l/min Mitchell Mitchell senior landscape architect RN 8:17:11 Lidocaine 1% added 20ml Evangelina Evangelina used for to vial Mitchell Mitchell procedure field RN RN 8:17:23 Heparin Flush added 3 Evangelina Evangelina used for Bag to bags Mitchell Mitchell procedure (1000units/500ml field RN RN NS) 8:22:13 Benadryl I.V. 50 mg Evangelina Evangelina Per Mitchell Mitchell physician RN RN 8:25:38 Versed I.V. 1 mg Evangelina Evangelina for sedation Mitchell Mitchell RN RN 8:25:44 Fentanyl I.V. 50 Evangelina Evangelina for sedation mcg Mitchell Mitchell RN RN 8:30:27 Versed I.V. 0.5 Evangelina Evangelina for sedation mg Mitchell Mitchell RN RN 8:30:32 Fentanyl I.V. 25 Evangelina Evangelina for sedation mcg Mitchell Mitchlel RN RN 8:39:13 Heparin Bolus I.V. 4000 Evangelina Evangelina Per units Mitchell Mitchell physician RN RN 8:48:16 Nitroglycerin I.C. 300 Joon Joon for IC/IA mcg Edmar randolph MD, MD 8:50:58 Versed I.V. 0.5 Evangelina Evangelina for sedation mg Mitchell Mitchell RN RN 8:51:08 Fentanyl I.V. 25 Evangelina Evangelina for sedation mcg Mitchell Medrano RN, RN 9:00:53 Versed I.V. 0.5 Evangelina Evangelina for sedation mg Mitchell Medrano RN RN 9:00:58 Fentanyl I.V. 25 Evangelina Evangelina for sedation mcg Mitchell Medrano RN car shunter Log Time Note 7:29:59 Use device set IR Diagnostic 7:30:01 Sterile Angiographic Pack opened to sterile field. 7:30:03 Bag Decanter opened to sterile field. 7:30:04 Acist Manifold opened to sterile field. 7:30:05 Acist Hand Control opened to sterile field. 7:30:07 Acist Syringe opened to sterile field. 7:30:37 TUBING, CONTRAST INJCTN HI PRES opened to sterile field. 7:30:39 Micropuncture VSI 4FR kit opened to sterile field. 7:30:40 St Milton 5FR Sheath opened to sterile field. 7:30:41 Cook SHIRINSON 145cm guide wire opened to sterile field. 7:30:53 A [employer] 5Fr IMT Catheter was advanced over the wire and used for . 7:31:22 Cook LISA 260 guide wire opened to sterile field. 7:31:26 8:07:10 Time tracking: Regular hours 8:08:59 Plan of Care:Hemodynamics will remain stable., Cardiac rhythm will remain stable., Comfort level will be maintained., Respiratory function will remain adequate., Patient/ family verbilizes understanding of procedure., Procedure tolerated without complication., Recovers from procedure without complications.. 8:09:07 Patient received from Outpatients to IR Alert and oriented. Tansferred to table in Supine position. 8:09:08 Correct patient and procedure confirmed by team. 8:09:09 Signed procedure consent form obtained from patient. 8:09:11 ECG and BP/O2 sat monitors applied to patient. 8:09:12 Vital chart was started 8:09:13 Baseline sample Acquired. 8:09:15 Full Disclosure recording started 8:09:16 8:09:22 H&P Date Dictated: 12/07/2016 Within 30 days and on chart.. 8:09:24 Pre-procedure instructions explained to patient. 8:09:24 Pre-op teaching completed and patient verbalized understanding. 8:09:27 Family in waiting room. 8:09:29 Patient NPO since Midnight. 8:09:42 Patient allergic to No known allergies 8:09:46 Is the patient allergic to Iodine/contrast media? No. 8:09:48 Is patient on blood thinner?Yes 8:09:54 ACC The patient was administered the following blood thiners within the last 24 hours: ACCAspirin, ACCPlavix 8:09:59 Patient diabetic? No. 8:10:02 8:10:04 ----Pre-sedation anethsthesia assessment.---- 8:10:08 Previous problem with sedation/anesthesia? No ? 8:10:11 Snore? Yes 8:10:13 Sleep apnea? No 8:10:15 Deviated septum? No 8:10:18 Opens mouth fully? Yes 8:10:20 Sticks out tongue? Yes 8:10:32 Airway obstruction? No ? 8:10:40 Dentures? Yes uppers, secured 8:10:56 Pre procedure: left dorsailis pedis pulse 2+ Normal; easily identifiable; not easily obliterated 8:11:03 Pre procedure: right dorsailis pedis pulse Doppler 8:11:07 Pre procedure: right posterior tibial pulse Doppler 8:11:34 Pre procedure: left posterior tibial pulse Doppler 8::44 IV patent on arrival in right hand with 0.9% NaCl at [facility]. 8::52 Left groin area was prepped with chlora-prep and draped in sterile fashion 8::54 Alarms reviewed by Prabhakar Gómez 8::55 Sharps counted by scrub and verified by Terri 8:11:56 8:17:03 Oxygen 3 l/min NC was given by Evangelina Medrano RN; used for procedure; 8:17:11 Lidocaine 1% 20ml vial added to field was given by Evangelina Medrano RN; used for procedure; 8:17:23 Heparin Flush Bag (1000units/500ml NS) 3 bags added to field was given by Evangelina Medrano RN; used for procedure; 8:22:13 Benadryl 50 mg I.V. was given by Evangelina Medrano RN; Per physician; 8:23:43 Physician arrived 8::59 --------ALL STOP TIME OUT------ 8:24:00 Final Timeout: patient, procedure, and site verified with staff and physician. All members of the team are in agreement. 8:24:07 Physical assessment completed. ASA score P 2 - A patient with mild systemic disease as per Joon Hyatt MD. 8:24:13 Sedation plan: IV Moderate Sedation Versed, Fentanyl 8:25:38 Versed 1 mg I.V. was given by Evangelina Medrano RN; for sedation; 8::44 Fentanyl 50 mcg I.V. was given by Evangelina Medrano RN; for sedation; 8:25:50 Procedure started. 8::56 Local anesthetic to left femerol artery with Lidocaine 1% by Joon Hyatt MD.INITIAL ACCESS ONLY 8::59 Arterial access obtained using ultrasound guidance. 8:30:27 Versed 0.5 mg I.V. was given by Evangelina Medrano RN; for sedation; 8:30:32 Fentanyl 25 mcg I.V. was given by Evangelina Medrano RN; for sedation; 8:33:[address] 260 .035 glide wire opened to sterile field. 8:39:06 Terumo 6Fr [place] Destination Sheath opened to sterile field. 8:39:13 Heparin Bolus 4000 units I.V. was given by Evangelina Medrano RN; Per physician; 8:41:23 VIPER .014 335 CM guide wire opened to sterile field. 8:44:43 Turbohawk 1 Large Atherectomy catheter opened to sterile field. 8:48:16 Nitroglycerin IC/IA 300 mcg I.C. was given by Joon Hyatt MD; for vasodilation; 8:50:58 Versed 0.5 mg I.V. was given by Evangelina Medrano RN; for sedation; 8:51:08 Fentanyl 25 mcg I.V. was given by Evangelina Medrano RN; for sedation; 8:58:58 BasixTOUCH Inflation Syringe opened to sterile field. 9:00:53 Versed 0.5 mg I.V. was given by Evangelina Medrano RN; for sedation; 9:00:58 Fentanyl 25 mcg I.V. was given by Evangelina Medrano RN; for sedation; 9:03:41 Inflation number: 1 A IN.PACT Admiral 6.0 x 40 x 135 DCB Balloon was prepped and advanced across the Undefined1, then inflated to 10 LON for 0:35 (min:sec). 9:08:57 Inflation number: 1 A IN.PACT Admiral 6.0 x 40 x 135 DCB Balloon was prepped and advanced across the Undefined2, then inflated to 10 LON for 3:12 (min:sec). 9:17:03 St Milton 6Fr sheath opened to sterile field. 9:17:21 MYNX LAMINATOR HAND 6FR/7FR opened to sterile field. 9:17:42 A sheath was inserted into the Left Femoral artery 9:17:42 Sheath removed intact; hemostasis achieved with Mynx Director Risk 6Fr/7Fr to the Left Femoral artery. 9:17:46 Procedure and supply charges have been captured, reviewed, submitted and are correct. 9:20:03 Procedure ended.(Physican Out) 9:20:10 Fluoroscopy time 08.90 minutes. 9:20:17 Fluoroscopy dose: 803.91 mGy 9:20:17 Flurop Dose total: 803.91 9:20:22 Contrast amount:Isovue 300 55ml. 9:20:24 Sharps counted by scrub and verified by R.N. 9:25:19 Post procedure: right dorsailis pedis pulse 1+ Palpable, but thready & weak; easily obliterated. 9:25:28 Post procedure: right posterior tibial pulse 1+ Palpable, but thready & weak; easily obliterated. 9:25:39 Post procedure: left dorsailis pedis pulse 2+ Normal; easily identifiable; not easily obliterated. 9:31:31 End room use (Document Last) 9:31:48 Vital chart was stopped Intervention Summary Intervention Notes Time ActionType Lesion and Equipment Action# Pressure Duration Attributes Used 9:03:41 Inflate Undefined1 IN.PACT 1 10 00:35 balloon Admiral 6.0 x 40 x 135 DCB Balloon 9:08:57 Inflate Undefined2 IN.PACT 1 10 03:12 balloon Admiral 6.0 x 40 x 135 DCB Balloon Device Usage Item Name Manufacture Quantity Catalog Number Hospital Part Current M inimal Lot# / Charge Number Stock Stock Serial# Code Sterile Cardinal 1 [id number] 5 Angiographic Health Pack Bag Decanter Microtek 1 [id number] 165931 25319 100450 5 Medical Inc. Acist Acist Medical 1 48941 211571 397088 898056 5 Manifold Systems Inc Acist Hand Acist Medical 1 34093 322325 918145 252831 5 Control Systems Inc Acist Syringe Acist Medical 1 95744 183933 549255 205248 2 0 Systems Inc TUBING, [facility] 1 [id number] 471798 334571 581173 5 CONTRAST INJCTN HI PRES Micropuncture VSI VASCULAR 1 7266V 246842 162279 [address] VSI 4[address] kit [address] [place] [address] [facility] Milton 1 247286 035057 044710 5 [id number] Sheath [facility] Zite [facility] 1 U24281 105319 816875 5 [id number] 145cm guide wire Speedwell Sci Speedwell 1 [id number] 084396 419760 44079 5 5Fr IMT Scientific Catheter [facility] 1 M76200 935578 252741 5 [id number] 260 guide wire Cook [facility] 1 C09953 168194 106075 5 [id number] [address]ADRUNNER 260 .035 glide wire Terumo 6Fr Terumo 1 RSR01 294249 77621 552094 5 [place] Destination Sheath VIPER .014 Cardiovascular 1 [id number] 484314 953282 5 335 CM guide systems wire Turbohawk 1 Ev3 1 H1-M 410595 124290 134694 5 Large Atherectomy catheter FM Global [facility] 1 AD6059 980899 858418 078198 5 Inflation Syringe IN.PACT Medtronic 2 [id number] 548997 524207 501282 5 [id number] Admiral 6.0 x [id number] 40 x [address] [facility] [address] [facility] 1 012137 350973 130234 5 [id number] sheath MYNX LAMINATOR HAND Access Closure 1 FV0132 163569 660484 5 [id number] 6FR/7FR Signature Audit [place] Stage Time Signature Unsigned Intra-Procedure 12/07/2016 Dianna Williamson 9:31:45 AM RT(R) Signatures Monitor : Dianna Williamson RT Signature : Date : Time : [place] [id number] [place] [address]
[2016-12-07 06:52] VITALS: BP 111/70; Ht 170.2 cm; Wt 93.2 kg
[2016-12-07 07:16] LABS: BASOPHILS 0.2 % (0.0-2.0); EOSINOPHILS 3.5 % (0-7); HEMATOCRIT 37.6 % (42.0-54.0); IMMATURE GRANULOCYTES 0.5 % (0-5); LYMPHOCYTES 22.4 % (15-50); MCH 30.7 pg (26.0-34.0); MCHC 34.6 g/dL (31.0-37.0); MCV 88.9 fL (80.0-100.0); MONOCYTES 7.5 % (2-11); NEUTROPHILS 65.9 % (40-80); PLATELET COUNT 300 10x3/uL (130-400); RBC 4.23 10x6/uL (4.20-6.10); RDW 12.3 % (11.5-14.5); WBC 9.8 10x3/uL (4.8-10.8)
[2016-12-07 07:27] LABS: CALC OSMOLALITY 273 mosm/kg (275-300); CALCIUM 9.1 mg/dL (8.5-10.1); CARBON DIOXIDE 23.5 mmol/L (21.0-32.0); CHLORIDE - SERUM 100 mmol/L (98-107); CREATININE - SERUM 0.9 mg/dL (0.6-1.3); GLUCOSE 106 mg/dL (74-106); POTASSIUM - SERUM 4.2 mmol/L (3.5-5.1); SODIUM 135 mmol/L (136-145); UREA NITROGEN 23 mg/dL (7-18); eGFR NON AFRICAN AMERICAN > 90 mL/min (90-120)
[2016-12-07 07:37] LABS: APTT 27.7 SECONDS (22.8-39.4); INR 0.91 (0.85-1.17); PROTIME 12.1 SECONDS (11.6-15.0)
--- NOTE | 2016-12-07 09:47 | NUR ---
0956-RECEIVED PT FROM IR AWAKE AND ALERT, VSS. NO DISTRESS LEFT GROIN BANDAGE CDI, SOFT TO TOUCH. NO EDEMA OR BLEEDING NOTED. PT IS LYING FLAT WITHOUT ANY DIFFICULTIES. FAMILY AT BEDSIDE CALL LIGHT IN REACH WILL CONTINUE TO MONITOR
--- NOTE | 2016-12-07 10:02 | NUR ---
0955-PT REMAINS IN FLAT LYING POSITION. EATING REG TRAY. DENIES ANY NEEDS OR CONCERNS AT THIS TIME
--- NOTE | 2016-12-07 13:10 | NUR ---
PATIENT AMBULATES TO BATHROOM, VOIDS LARGE AMOUNT IN TOILET WITHOUT DIFFICULTY, RIGHT WRIST PIV DC'D WITH TIP INTACT. PATIENT DRESSING IN PERSONAL CLOTHING
== END 2016-12-07 13:30 | disposition home or self-care (01) ==
LOC: D.OPS 05:44 → D.RAD 08:00 → D.OPS 08:00
PROVIDERS: Radiology Diagnostic Radiology
DX: I70.211 Atherosclerosis of native arteries of extremities with intermittent claudication, right leg (principal)

== ENCOUNTER 2016-12-12 17:29 | Emergency (ER) | payer BC ==
[2016-12-07 06:52] VITALS: BMI 32.2
[2016-12-12 18:01] LABS: BASOPHILS 0.2 % (0.0-2.0); HEMATOCRIT 37.6 % (42.0-54.0); HEMOGLOBIN 13.1 g/dL (13.5-17.5); IMMATURE GRANULOCYTES 0.5 % (0-5); LYMPHOCYTES 19.9 % (15-50); MCH 30.8 pg (26.0-34.0); MCHC 34.8 g/dL (31.0-37.0); MCV 88.5 fL (80.0-100.0); MEAN PLATELET VOLUME 8.9 fL (7.4-10.4); MONOCYTES 9.9 % (2-11); NEUTROPHILS 67.5 % (40-80); PLATELET COUNT 286 10x3/uL (130-400); RBC 4.25 10x6/uL (4.20-6.10); RDW 12.4 % (11.5-14.5); WBC 12.1 10x3/uL (4.8-10.8)
[2016-12-12 18:12] LABS: APTT 28.5 SECONDS (22.8-39.4); INR 0.98 (0.85-1.17); PROTIME 12.8 SECONDS (11.6-15.0)
== END 2016-12-12 18:53 | disposition home or self-care (01) ==
LOC: D.ER 17:29
PROVIDERS: Emergency Medicine
DX: L76.82 Other postprocedural complications of skin and subcutaneous tissue (principal); I10 Essential (primary) hypertension; E78.5 Hyperlipidemia, unspecified; F17.200 Nicotine dependence, unspecified, uncomplicated

== ENCOUNTER 2018-01-28 19:48 | Observation (INO) | payer BC ==
[~2018-01-28] VITALS: Ht 172.7 cm; Wt 85.5 kg
--- NOTE | ~2018-01-28 | HEMODYNAMI ---
PATIENT:YOEL BERNABE MEDICAL RECORD: [id number] : 62 [id number] ADMISSION DATE: 01/28/18 Generatedon:01/30/20189:11 Patient name: YOEL BERNABE Patient #: [id number] : 1960 Date of study: 01/30/2018 Page: Of Hemodynamic Procedure Report Patient Data Patient Demographics Procedure consent was obtained First Name: YOEL Gender: Male Last Name: SRINIVASA : 1960 Middle Initial: Pankaj Age: 57 year(s) Patient #: [id number] Race: SSN: [id number] Additional ID: [id number] Contact details Address: [address] [place] [address] State: [place] City: [place] Zip code: [address] Past Medical History Allergies: No known allergies Admission Admission Data Admission Date: 01/28/2018 Admission Time: 22:28 Room #: [facility] Height (in.): 68 BSA: 1.99 (m2) Height (cm.): 172.72 BMI: 28.49 (kg/m2) Weight (lbs.): 187.39 Weight (kg.): 85 Lab Results Lab Result Date: 01/30/2018 Lab Result Time: 0:00 Biochemistry Name Units Result Min Max BUN mg/dl 17 --(---*)-- 7 18 Creatinine mg/dl 0.9 --(-*--)-- 0.6 1.3 CBC Name Units Result Min Max Hemoglobin g/dl 14 --(*---)-- 13.5 17.5 Procedure Procedure Types Cath Procedure Diagnostic Procedure [facility] w/Coronaries Sedation Charges Moderate Sedation up to 15 minutes Procedure Description Procedure Date Procedure Date: 01/30/2018 Procedure Start Time: 8:55 Procedure End Time: 9:11 Procedure Staff Name Function Rodney Luna MD Performing Physician Amanda Pink RT Monitor Alonzo So RN Nurse Evangelina Sharif RT Scrub Procedure Data Cath Procedure Fluoroscopy Diagnostic fluoroscopy Total fluoroscopy Time: 1.4 time: 1.4 min min Diagnostic fluoroscopy Total fluoroscopy dose: 409 dose: 409 mGy mGy Contrast Material Contrast Material Type Amount (ml) Isovue 300 45 Entry Location Entry Primary Successful Side Size Upsize Upsize Entry Closure Succes sful Closure Location (Fr) 1 (Fr) 2 (Fr) Remarks Device Remarks Femoral Right 5 Fr Exoseal artery Estimated blood loss: 5 ml Diagnostic catheters Device Type Used For End Catheter Placement DIAGNOSTIC AR 2 MOD 5 Fr Procedure catheter ([id number]) DIAGNOSTIC Pigtail 5Fr Procedure catheter ([id number]) Procedure Complications No complications Procedure Medications Medication Administration Route Dosage Oxygen NC 2 l/min Heparin Flush Bag added to field 2 bags (1000units/500ml NS) 0.9% NaCl I.V. 100 ml/hr Fentanyl I.V. 50 mcg Versed I.V. 1 mg Fentanyl I.V. 50 mcg Versed I.V. 1 mg Hemodynamics Rest BSA: 1.99 (m2) HGB: 14 (g/dl) O2 Consumption: Estimated: 233.7 (ml/min) O2 Consu mption indexed: Estimated:117.44 (ml/min/m) Heart Rate: 68 (bpm) Pressure Samples Time Site Value (mmHg) Purpose Heart Use Rate(bpm) 9:06 LV 108/-6,13 Snapshot 76 Gradients Valve Time Site Site Mean SEP/DFP Peak To Heart Use 1 2 (mmHg) (sec/min) Peak Rate (mmHg) (bpm) Aortic 9:06 LV AO 75 Snapshots Pre Cath Intra NCS Post Cath Vital Signs Time Heart Resp SPO2 NIBP (mmHg) Rhythm Pain Sedation Rate (ipm) (%) Status Level (bpm) 8:40:41 62 17 99 142/81(100) NSR 0 (11) 10(A) , No pain 8:44:53 73 16 93 132/77(99) NSR 0 (11) 10(A) , No pain 8:49:02 67 15 99 135/79(98) NSR 0 (11) 10(A) , No pain 8:53:16 70 15 99 116/72(86) NSR 0 (11) 9(A) , No pain 8:57:24 71 16 99 134/70(92) NSR 0 (11) 9(A) , No pain 9:01:36 73 16 99 115/66(81) NSR 0 (11) 9(A) , No pain 9:05:44 71 16 99 111/65(88) NSR 0 (11) 9(A) , No pain 9:09:25 73 16 99 110/69(82) NSR 0 (11) 9(A) , No pain Medications Time Medication Route Dose Verified Delivered Reason Notes Effect iveness by by 8:42:54 Oxygen NC 2 Rodney Alonzo Per l/min Jeremy So RN physician 8:43:02 Heparin Flush added 2 Rodney Alonzo used for Bag to bags Jeremy So gas transfer operator (1000units/500ml field NS) 8:43:12 0.9% NaCl I.V. 100 Rodney Alonzo Per ml/hr Jeremy So RN physician 8:50:58 Fentanyl I.V. 50 Rodney Alonzo for mcg Jeremy So RN sedation 8:51:04 Versed I.V. 1 mg Rodney Alonzo for Jeremy So RN sedation 8:57:21 Fentanyl I.V. 50 Rodney Alonzo for mcg Jeremy So RN sedation 8:57:25 Versed I.V. 1 mg Rodney Alonzo for Jeremy So RN sedation Procedure Log Time Note 8:09:08 Plan of Care:Hemodynamics will remain stable., Cardiac rhythm will remain stable., Comfort level will be maintained., Respiratory function will remain adequate., Patient/ family verbilizes understanding of procedure., Procedure tolerated without complication., Recovers from procedure without complications.. 8:09:10 Time tracking: Regular hours 8:09:11 Signed procedure consent form obtained from patient. 8:09:20 H&P Date Dictated: 01/28/2018 Within 30 days and on chart.. 8:10:00 Lab Result : BUN 17 mg/dl 8:10:00 Lab Result : Hemoglobin 14 g/dl 8:10:00 Lab Result : Creatinine 0.9 mg/dl 8:16:17 Is patient on blood thinner?Yes 8:16:20 ACC The patient was administered the following blood thiners within the last 24 hours: ACCPlavix 8:17:08 Patient Weight : 187.39 lbs 8:17:14 Patient Height : 68 inches 8:34:28 Patient received from Med II to CCL 2 Alert and oriented. Tansferred to table in Supine position. 8:34:30 Warm blankets applied, and lindsey hugger turned on for patient comfort. 8:34:30 Correct patient and procedure confirmed by team. 8:34:31 ECG and BP/O2 sat monitors applied to patient. 8:39:39 Vital chart was started 8:39:44 Baseline sample Acquired. 8:39:47 Rhythm: sinus rhythm 8:39:48 Full Disclosure recording started 8:39:49 Pre-procedure instructions explained to patient. 8:39:49 Pre-op teaching completed and patient verbalized understanding. 8:39:51 Family in patients room. 8:39:58 Patient NPO since Midnight. 8:40:04 Patient allergic to No known allergies 8:40:11 Patient diabetic? No. 8:40:14 Previous problem with sedation/anesthesia? No ? 8:40:15 Snore? Yes 8:40:17 Sleep apnea? No 8:40:18 Deviated septum? No 8:40:19 Opens mouth fully? Yes 8:40:20 Sticks out tongue? Yes 8:40:21 Airway obstruction? No ? 8:40:25 Dentures? No OUT 8:40:29 Pre procedure: right dorsailis pedis pulse 1+ Palpable, but thready & weak; easily obliterated 8:40:32 Patient pain scale 0/10 ?. 8:40:46 IV patent on arrival in left forearm with 0.9% NaCl at O. 8:40:49 Lab results completed and on chart. 8:40:52 Right groin area was prepped with chlora-prep and draped in sterile fashion 8:40:53 Alarms reviewed by R. N. 8:40:53 Sharps counted by scrub and verified by R.N. 8:42:54 Oxygen 2 l/min NC was administered by Alonzo So RN; Per physician; 8:43:02 Heparin Flush Bag (1000units/500ml NS) 2 bags added to field was administered by Alonzo So RN; used for procedure; 8:43:12 0.9% NaCl 100 ml/hr I.V. was administered by Alonzo So RN; Per physician; 8:44:17 --------ALL STOP TIME OUT------ 8:44:17 Final Timeout: patient, procedure, and site verified with staff and physician. All members of the team are in agreement. 8:44:21 Right groin site verified by team. 8:44:28 Physical assessment completed. ASA score P 2 - A patient with mild systemic disease as per Rodney Luna MD. 8:44:32 Sedation plan: IV Moderate Sedation Medication:Versed, Fentanyl 8:44:39 Use device set Femoral Dx 8:44:41 ACIST Syringe (19049) opened to sterile field. 8:44:42 Bag Decanter (2002S) opened to sterile field. 8:44:43 ACIST Hand Control (02269) opened to sterile field. 8:44:44 ACIST Manifold (10152) opened to sterile field. 8:44:45 Tegaderm 4 x 4 (1626W) opened to sterile field. 8:45:13 PERCUTANEOUS ENTRY 19GA needle opened to sterile field. 8:45:14 Medline Cath Pack ([id number]) opened to sterile field. 8:45:15 SHEATH 5FR [place] (LHN264) opened to sterile field. 8:45:16 DIAGNOSTIC WIRE .035 260cm J wire (404895) opened to sterile field. 8:50:58 Fentanyl 50 mcg I.V. was administered by Alonzo So RN; for sedation; 8:51:04 Versed 1 mg I.V. was administered by Alonzo So RN; for sedation; 8:54:33 Procedure started. 8:54:45 Zero performed for pressure channel P1 8:55:13 Local anesthetic to right femoral artery with Lidocaine 2% by Rodney Luna MD.INITIAL ACCESS ONLY 8:56:58 Zero performed for pressure channel P1 8:57:21 Fentanyl 50 mcg I.V. was administered by Alonzo So RN; for sedation; 8:57:25 Versed 1 mg I.V. was administered by Alonzo So RN; for sedation; 8:58:00 A 5 Fr sheath was inserted into the Right Femoral artery 8:58:23 A DIAGNOSTIC AR 2 MOD 5 Fr catheter ([id number]) was advanced over the wire and used for Procedure. 9:00:55 LCA angiography performed. 9:02:51 RCA angiography performed. 9:04:04 Catheter exchanged over wire. 9:04:44 A DIAGNOSTIC Pigtail 5Fr catheter ([id number]) was advanced over the wire and used for Procedure. 9:05:29 LV gram done using GUSTAFSON 9:05:32 Injector settings: Ml/sec: 10, Volume: 20, 9:06:11 LV hemodynamics recorded. 9:06:34 EF : 55 % 9:06:44 Catheter removed. 9:06:52 EXOSEAL 5Fr (EX500) opened to sterile field. 9:07:01 Sheath removed intact; hemostasis achieved with Exoseal to the Right Femoral artery. 9:08:01 Procedure ended.(Physican Out) 9:09:28 Fluoroscopy time 01.40 minutes. 9::32 Flurop Dose total: 409 9::32 Fluoroscopy dose: 409 mGy 9:09:37 Contrast amount:Isovue 300 45ml. 9:09:38 Sharps counted by scrub and verified by R.N. 9:09:43 Post-op/insertion site Right Femoral artery dressed using a 4 x 4 and Tegaderm. 9:09:47 Post right femoral artery:stable, soft, clean and dry 9:09:51 Post-procedure physical assessment completed. ASA score P 2 - A patient with mild systemic disease as per Rodney Luna MD. 9:09:54 Estimated blood loss: 5 ml 9:09:57 Post procedure rhythm: unchanged. 9:09:58 Post procedure instruction explained to patient.Patient verbalizes understanding. 9:09:59 Patient needs reinforcement of post procedure teaching. 9:10:16 Procedure type changed to Cath procedure, Diagnostic procedure, LHC, LHC w/Coronaries, Sedation Charges, Moderate Sedation up to 15 minutes 9:11:09 Procedure and supply charges have been captured, reviewed, submitted and are correct. 9:11:15 Procedure Complication : No complications 9:11:17 Vital chart was stopped 9:11:30 See physician's report for complete and final results. 9:11:32 Report given to PCU. 9:11:34 Patient transfered to PCU with Bed. 9:11:35 Procedure ended. 9:11:35 Full Disclosure recording stopped 9:11:39 End room use (Document Last) Device Usage Item Name Manufacture Quantity Catalog Hospital Part Current Minimal Lot# / Number Charge Number Stock Stock Serial# Code ACIST Acist 1 48966 093838 241499 440246 20 Syringe Medical (34874) Systems Inc Bag Decanter Microtek 1 2001S 325130 22977 588940 5 (2001S) Medical Inc. ACIST Hand Acist 1 96440 987590 131050 420509 5 Control Medical (90528) Systems Inc ACIST Acist 1 95605 854373 415896 873967 5 Manifold Medical (37339) Systems Inc Tegaderm 4 x 3M 1 1626W 285879 546539 213731 5 4 (1626W) PERCUTANEOUS Cook Medical 1 [id number] 372873 484611 5 ENTRY 19GA needle Medline Cath Cardinal 1 [id number] 913375 56146 095217 5 Pack Health ([id number]) SHEATH 5FR Terumo 1 AVO428 992544 399395 422766 40 [place] (MML148) DIAGNOSTIC [place] 1 180784 875922 076903 335816 30 WIRE .035 260cm J wire (946813) DIAGNOSTIC Cardinal 1 [id number] 938549 069689 763264 20 AR 2 MOD 5 Health Fr catheter (954403D) DIAGNOSTIC Cardinal 1 [id number] 635505 168816 826194 5 Pigtail 5Fr Health catheter (231065K) EXOSEAL 5Fr Cardinal 1 EX500 442049 387187 929249 10 (EX500) Health Signature Audit [place] Stage Time Signature Unsigned Intra-Procedure 01/30/2018 Amanda Pink 9:11:51 AM RT(R) Signatures Monitor : Amanda Pink Signature : RT Date : Time : [address] [address]
[2018-01-28 20:25] LABS: BASOPHILS 0.2 % (0-2); EOSINOPHILS 2.7 % (0-7); HEMATOCRIT 39.5 % (42.0-54.0); HEMOGLOBIN 13.9 g/dL (13.5-17.5); IMMATURE GRANULOCYTES 0.4 % (0-5); LYMPHOCYTES 24.2 % (15-50); MCH 30.9 pg (26.0-34.0); MCHC 35.2 g/dL (31.0-37.0); MCV 87.8 fL (80.0-100.0); MEAN PLATELET VOLUME 8.9 fL (7.4-10.4); MONOCYTES 6.8 % (2-11); NEUTROPHILS 65.7 % (40-80); PLATELET COUNT 283 10x3/uL (130-400); WBC 10.4 10x3/uL (4.8-10.8)
[2018-01-28 21:28] LABS: ALBUMIN 3.7 g/dL (3.4-5.0); ALKALINE PHOSPHATASE 62 U/L (46-116); ALT (SGPT) 37 U/L (10-68); BILIRUBIN - TOTAL 0.27 mg/dL (0.2-1.3); CARBON DIOXIDE 25.3 mmol/L (21.0-32.0); CREATINE KINASE 242 UL (21-232); CREATININE - SERUM 1.1 mg/dL (0.6-1.3); MAGNESIUM - SERUM 1.8 mg/dL (1.8-2.4); PROTEIN - SERUM 7.5 g/dL (6.4-8.2); eGFR NON AFRICAN AMERICAN 73 mL/min (90-120)
[2018-01-28 21:30] LABS: CHLORIDE - SERUM 98 mmol/L (98-107); POTASSIUM - SERUM 3.7 mmol/L (3.5-5.1); SODIUM 136 mmol/L (136-145)
[2018-01-28 21:40] LABS: CALC OSMOLALITY 277 mosm/kg (275-300); GLUCOSE 146 mg/dL (74-106); UREA NITROGEN 20 mg/dL (7-18)
[2018-01-28 21:44] LABS: TROPONIN-I 0.077 ng/mL (0.000-0.060)
[2018-01-28 23:23] VITALS: BP 133/91; Ht 172.7 cm; Wt 85.5 kg
[2018-01-29 05:36] VITALS: BP 104/61
[2018-01-29 06:23] LABS: CKMB 3.3 U/L (0.0-3.6); CREATINE KINASE 221 UL (21-232); TROPONIN-I < 0.017 ng/mL (0.000-0.060)
[2018-01-29 07:57] VITALS: BP 108/63
[2018-01-29 08:51] LABS: ANION GAP 15.3 mmol/L (8-16); CALCIUM 8.9 mg/dL (8.5-10.1); CARBON DIOXIDE 25.4 mmol/L (21.0-32.0); CREATININE - SERUM 1.1 mg/dL (0.6-1.3); POTASSIUM - SERUM 3.7 mmol/L (3.5-5.1)
[2018-01-29 08:55] LABS: BASOPHILS 0.4 % (0-2); HEMATOCRIT 39.7 % (42.0-54.0); HEMOGLOBIN 13.5 g/dL (13.5-17.5); IMMATURE GRANULOCYTES 0.4 % (0-5); MCH 30.5 pg (26.0-34.0); MEAN PLATELET VOLUME 9.4 fL (7.4-10.4); MONOCYTES 11.9 % (2-11); NEUTROPHILS 51.3 % (40-80); PLATELET COUNT 270 10x3/uL (130-400); RBC 4.42 10x6/uL (4.20-6.10); RDW 13.2 % (11.5-14.5); WBC 8.3 10x3/uL (4.8-10.8)
[2018-01-29 08:58] LABS: MCV 89.8 fL (80.0-100.0)
[2018-01-29 10:35] LABS: CKMB 3.1 U/L (0.0-3.6); CREATINE KINASE 204 UL (21-232)
[2018-01-29 10:36] LABS: TROPONIN-I < 0.017 ng/mL (0.000-0.060)
[2018-01-29 11:23] VITALS: BP 116/78
[2018-01-29 15:36] VITALS: BP 120/62
[2018-01-29 21:01] VITALS: BP 133/72
[2018-01-29 23:57] VITALS: BP 144/83
[2018-01-30 05:25] VITALS: BP 124/66
[2018-01-30 06:12] LABS: BASOPHILS 0.3 % (0-2); EOSINOPHILS 3.8 % (0-7); IMMATURE GRANULOCYTES 0.4 % (0-5); LYMPHOCYTES 26.3 % (15-50); MCH 30.2 pg (26.0-34.0); MCHC 34.1 g/dL (31.0-37.0); MCV 88.4 fL (80.0-100.0); MEAN PLATELET VOLUME 9.5 fL (7.4-10.4); MONOCYTES 9.7 % (2-11); NEUTROPHILS 59.5 % (40-80); PLATELET COUNT 253 10x3/uL (130-400); RBC 4.64 10x6/uL (4.20-6.10); RDW 13.1 % (11.5-14.5); WBC 9.3 10x3/uL (4.8-10.8)
[2018-01-30 06:32] LABS: ALBUMIN 3.4 g/dL (3.4-5.0); ALKALINE PHOSPHATASE 56 U/L (46-116); ALT (SGPT) 33 U/L (10-68); BILIRUBIN - TOTAL 0.37 mg/dL (0.2-1.3); CALC OSMOLALITY 275 mosm/kg (275-300); CALCIUM 9.1 mg/dL (8.5-10.1); CARBON DIOXIDE 26.3 mmol/L (21.0-32.0); CHLORIDE - SERUM 101 mmol/L (98-107); CREATININE - SERUM 0.9 mg/dL (0.6-1.3); GLUCOSE 97 mg/dL (74-106); POTASSIUM - SERUM 3.8 mmol/L (3.5-5.1); PROTEIN - SERUM 7.2 g/dL (6.4-8.2); SODIUM 137 mmol/L (136-145); UREA NITROGEN 17 mg/dL (7-18); eGFR NON AFRICAN AMERICAN > 90 mL/min (90-120)
[2018-01-30 08:24] VITALS: BP 104/70
[2018-01-30 15:07] VITALS: BP 107/65
[2018-01-30 19:00] VITALS: BP 139/87
[2018-01-31 04:00] VITALS: BP 127/75
[2018-01-31 05:56] LABS: BASOPHILS 0.2 % (0-2); EOSINOPHILS 3.3 % (0-7); HEMATOCRIT 40.6 % (42.0-54.0); HEMOGLOBIN 13.9 g/dL (13.5-17.5); IMMATURE GRANULOCYTES 0.3 % (0-5); LYMPHOCYTES 18.4 % (15-50); MCH 30.5 pg (26.0-34.0); MCHC 34.2 g/dL (31.0-37.0); MEAN PLATELET VOLUME 9.4 fL (7.4-10.4); MONOCYTES 8.6 % (2-11); NEUTROPHILS 69.2 % (40-80); PLATELET COUNT 247 10x3/uL (130-400); RBC 4.56 10x6/uL (4.20-6.10); RDW 12.9 % (11.5-14.5); WBC 10.9 10x3/uL (4.8-10.8)
[2018-01-31 06:18] LABS: ALBUMIN 3.4 g/dL (3.4-5.0); ALKALINE PHOSPHATASE 56 U/L (46-116); ALT (SGPT) 32 U/L (10-68); CALC OSMOLALITY 275 mosm/kg (275-300); CALCIUM 9.2 mg/dL (8.5-10.1); CARBON DIOXIDE 27.6 mmol/L (21.0-32.0); CHLORIDE - SERUM 102 mmol/L (98-107); GLUCOSE 100 mg/dL (74-106); POTASSIUM - SERUM 4.1 mmol/L (3.5-5.1); PROTEIN - SERUM 7.2 g/dL (6.4-8.2); SODIUM 137 mmol/L (136-145); UREA NITROGEN 18 mg/dL (7-18); eGFR NON AFRICAN AMERICAN 82 mL/min (90-120)
[2018-01-31 07:44] VITALS: BP 112/77
[2018-01-31] MEDS ORDERED: NICODERM C1 PATCH .1 TRANSDERM (10:26)
== END 2018-01-31 11:31 | disposition home or self-care (01) ==
LOC: D.ER 19:48 → D.M2 22:28 → D.EDHOLD 22:28 → OBSVTIME 22:29 → D.MS 22:44 → D.M2 22:48
PROVIDERS: Emergency Medicine; Family Medicine; Internal Medicine Cardiovascular Disease
DX: R55 Syncope and collapse (principal); I25.10 Atherosclerotic heart disease of native coronary artery without angina pectoris; Z95.5 Presence of coronary angioplasty implant and graft; T82.855A Stenosis of coronary artery stent, initial encounter; Y83.8 Other surgical procedures as the cause of abnormal reaction of the patient, or of later complication, without mention of misadventure at the time of the procedure; I73.9 Peripheral vascular disease, unspecified; I10 Essential (primary) hypertension; E78.5 Hyperlipidemia, unspecified; F17.203 Nicotine dependence unspecified, with withdrawal

== ENCOUNTER 2018-12-06 07:37 | Emergency (ER) | payer BC ==
[~2018-12-06] VITALS: Ht 172.7 cm; Wt 79.5 kg
[~2018-12-06 07:37] MED LIST changes: +NICODERM C1 PATCH .1 TRANSDERM
[2018-12-06 07:38] VITALS: Ht 172.7 cm; Wt 79.5 kg
[2018-12-06] MEDS ORDERED: TENORMIN25 MG PO (07:41)
[2018-12-06 07:56] LABS: BASOPHILS 0.1 % (0-2); EOSINOPHILS 1.4 % (0-7); HEMATOCRIT 42.7 % (42.0-54.0); HEMOGLOBIN 15.2 g/dL (13.5-17.5); IMMATURE GRANULOCYTES 0.2 % (0-5); LYMPHOCYTES 11.7 % (15-50); MCH 31.2 pg (26.0-34.0); MCHC 35.6 g/dL (31.0-37.0); MCV 87.7 fL (80.0-100.0); MEAN PLATELET VOLUME 9.7 fL (7.4-10.4); MONOCYTES 7.2 % (2-11); NEUTROPHILS 79.4 % (40-80); PLATELET COUNT 224 10x3/uL (130-400); RBC 4.87 10x6/uL (4.20-6.10); RDW 12.7 % (11.5-14.5); WBC 9.4 10x3/uL (4.8-10.8)
[2018-12-06 08:09] LABS: INR 1.05 (0.85-1.17); PROTIME 13.2 SECONDS (11.6-15.0)
[2018-12-06 08:11] LABS: D-DIMER-QUANTITATIVE 1.63 ug/mLFEU (0.20-0.54)
[2018-12-06 08:13] LABS: ALBUMIN 3.9 g/dL (3.4-5.0); ALKALINE PHOSPHATASE 69 U/L (46-116); ALT (SGPT) 33 U/L (10-68); BILIRUBIN - TOTAL 0.73 mg/dL (0.2-1.3); CALC OSMOLALITY 278 mosm/kg (275-300); CALCIUM 9.3 mg/dL (8.5-10.1); CARBON DIOXIDE 24.4 mmol/L (21.0-32.0); CHLORIDE - SERUM 102 mmol/L (98-107); CREATININE - SERUM 0.9 mg/dL (0.6-1.3); GLUCOSE 109 mg/dL (74-106); POTASSIUM - SERUM 4.3 mmol/L (3.5-5.1); PROTEIN - SERUM 7.7 g/dL (6.4-8.2); SODIUM 137 mmol/L (136-145); UREA NITROGEN 24 mg/dL (7-18); eGFR NON AFRICAN AMERICAN > 90 mL/min (90-120)
--- NOTE | 2018-12-06 11:20 | CN ---
PATIENT NAME:YOEL BERNABE MEDICAL RECORD: [id number] : 62 LOCATION:[facility] ADMIT DATE: ACCOUNT: [id number] CONSULTING PHYSICIAN: TOR ANDERSEN MD REFERRING PHYSICIAN: CHRISTIANO CAST MD DATE OF CONSULTATION: 12/06/2018 DIAGNOSES: 1. Claudication. 2. Peripheral vascular disease. 3. Coronary artery disease. 4. Hypertension. 5. Hyperlipidemia. HISTORY OF PRESENT ILLNESS: Mr. Bernabe presents with left leg pain compatible with claudication, worsening over the past 2 weeks, extremely painful, limiting his walking. He has a history of coronary artery disease, history of peripheral vascular disease. He is having no anginal symptomatology. Blood pressure is controlled on atenolol. Hyperlipidemia is controlled with atorvastatin. PHYSICAL EXAMINATION: GENERAL APPEARANCE: Well-nourished, well-developed, appears stated age. Level of distress, comfortable. PSYCHIATRIC: Mental status, alert, normal affect. Orientation, oriented to time, place and person. EYES: Lids and conjunctiva, noninjected. No discharge, no pallor. ENT: Lips, teeth, gums, normal dentition. Oropharynx, no cyanosis, no pallor. NECK: Carotid arteries, bilateral normal upstroke, no bruits, no thrills. JUGULAR VEINS: No jugular venous pressure or distention. CERVICAL LYMPH NODES: Nontender, nonenlarged. THYROID: Not enlarged. Nontender. No nodules. LUNGS: Respiratory effort, unlabored. CHEST: Normal curvature. No thoracic deformity. No chest wall tenderness. Percussion, resonant. Auscultation, clear. No wheezes, no rales, no rhonchi. CARDIOVASCULAR: Precordial exam, nondisplaced. No heaves or pericardial thrills. Rate and rhythm, regular. Heart sounds, normal S1, normal S2. No S3, no gallop, no rub. Systolic murmur, not heard. Diastolic murmur, not heard. EXTREMITIES: No cyanosis, no edema. Peripheral pulses, full and equal in all extremities, except as noted. No bruits appreciated. ABDOMEN: Soft, nondistended. Normal aorta. No bruit. Nontender. No masses. Liver, nontender, no hepatomegaly. Spleen, nontender, no splenomegaly. MUSCULOSKELETAL: No joint tenderness. No joint swelling. No erythema. NEUROLOGICAL: Normal gait, normal strength, normal tone. SKIN: Warm and dry. OVERALL IMPRESSION: Leg pain compatible with claudication. Most likely has hemodynamically significant peripheral vascular disease. We will proceed with coronary angiography in the near future. Further care depends upon findings of the angiography. TRANSINT:[id number] Voice Confirmation ID: [id number] DOCUMENT ID: [id number] CONSULT REPORT [id number] YOEL BERNABE, TOR OROZCO at 1120 CC: [id number] DICTATION DATE: 12/06/18 1015 ECHOCARDIOGRAPH TECH: 12/06/18 1102 [facility] [address] [place] [id number]
[2018-12-06 11:22] VITALS: BP 137/71
== END 2018-12-06 11:23 | disposition home or self-care (01) ==
LOC: D.ER 07:37
PROVIDERS: Family Medicine
DX: I70.212 Atherosclerosis of native arteries of extremities with intermittent claudication, left leg (principal); M79.662 Pain in left lower leg

== ENCOUNTER 2018-12-08 08:15 | Outpatient (CLI) | payer BC ==
[~2018-12-08] VITALS: Ht 172.7 cm; Wt 79.5 kg
--- NOTE | ~2018-12-08 | HEMODYNAMI ---
PATIENT:YOEL BERNABE MEDICAL RECORD: [id number] : 62 LOCATION:[facility] ADMISSION DATE: 12/08/18 Generatedon:12/08/201814:21 Patient name: YOEL BERNABE Patient #: [id number] : 1960 Date of study: 12/08/2018 Page: Of Hemodynamic Procedure Report Patient Data Patient Demographics Procedure consent was obtained First Name: YOEL Gender: Male Last Name: SRINIVASA : 1960 [facility] Initial: Pankaj Age: 58 year(s) Patient #: [id number] Race: SSN: [id number] Additional ID: [id number] Contact details Address: [address] [place] [address] State: [place] City: [place] Zip code: [address] Past Medical History Allergies: No known allergies Admission Admission Data Admission Date: 12/08/2018 Admission Time: 8:15 Admit Source: Other Lab Results Lab Result Date: 12/08/2018 Lab Result Time: 9:30 Biochemistry Name Units Result Min Max BUN mg/dl 17 --(---*)-- 7 18 Creatinine mg/dl 0.9 --(-*--)-- 0.6 1.3 CBC Name Units Result Min Max Hematocrit % 42.1 --(*---)-- 42 54 Hemoglobin g/dl 15 --(-*--)-- 13.5 17.5 Procedure Procedure Types Cath Procedure Diagnostic Procedure Peripheral Cath Diagnostic Procedure Senior Core Java Developer Peripheral Procedures Kozgg-Nehvozj-Fco-Off Peripheral vascular Intervention Angioplasty Angioplasty Iliac Initial Stent Stent-Fem/Popw/plasty Procedure Description Procedure Date Procedure Date: 12/08/2018 Procedure Start Time: 13:52 Procedure End Time: 14:13 Procedure Staff Name Function Richard Paula MD Performing Physician Amanda Pink RT Monitor Kamran Kennedy RT Scrub Alondra Pride RN Nurse Evan Vuong RT Railway Signal Technician Procedure Data Cath Procedure Fluoroscopy Diagnostic fluoroscopy Total fluoroscopy Time: 3.8 time: 3.8 min min Diagnostic fluoroscopy Total fluoroscopy dose: 189 dose: 189 mGy mGy Contrast Material Contrast Material Type Amount (ml) Isovue 300 106 Entry Location Entry Primary Successful Side Size Upsize Upsize Entry Closure Succes sful Closure Location (Fr) 1 (Fr) 2 (Fr) Remarks Device Remarks Femoral Right 5 Fr 6 Fr Exoseal artery Long Estimated blood loss: 10 ml Diagnostic catheters Device Type Used For End Catheter Placement DIAGNOSTIC UF 5Fr Procedure catheter ([id number]) Procedure Complications No complications Procedure Medications Medication Administration Route Dosage Oxygen etCO2 Nasal cannula 2 l/min Lidocaine 2% added to field 20 Heparin Flush Bag added to field 2 bags (1000units/500ml NS) 0.9% NaCl I.V. 100 ml/hr Versed I.V. 2 mg Fentanyl I.V. 100 mcg Heparin Bolus I.V. 4000 units Fentanyl I.V. 100 mcg Plavix P.O. 75 mg Hemodynamics Rest Heart Rate: 83 (bpm) Snapshots Pre Cath Intra NCS Post Cath Vital Signs Time Heart Resp SPO2 etCO2 NIBP (mmHg) Rhythm Pain Sedation Rate (ipm) (%) (mmHg) Status Level (bpm) 13:45:55 77 16 100 37.1 168/97(132) NSR 0 (11) 10(A) , No pain 13:50:15 78 15 100 37.8 174/101(149) NSR 0 (11) 10(A) , No pain 13:54:35 90 26 99 14.8 191/115(161) NSR 0 (11) 10(A) , No pain 13:58:59 93 16 100 44.5 182/112(146) NSR 0 (11) 9(A) , No pain 14:03:22 92 12 99 23.7 174/94(136) NSR 0 (11) 9(A) , No pain 14:07:44 90 15 99 17 176/100(129) NSR 0 (11) 9(A) , No pain 14:12:04 85 17 99 12.6 161/88(126) NSR 0 (11) 10(A) , No pain Medications Time Medication Route Dose Verified Delivered Reason Notes Effectiveness by by 13:44:12 Oxygen etCO2 2 Richard Cantu used for Nasal l/min Nisa Pride neurophysiological technician cannula 13:44:26 Lidocaine 2% added 20ml Richard Buffie used for to vial Nsia Pride RN procedure field 13:44:32 Heparin Flush added 2 Richard Buffie used for Bag to bags Nisa Pride RN procedure (1000units/500ml field NS) 13:44:41 0.9% NaCl I.V. 100 Richard Buffie Per physician ml/hr Nisa Pride RN 13:50:53 Versed I.V. 2 mg Richard Buffie for sedation Nisa Pride RN 13:50:59 Fentanyl I.V. 100 Richard Buffie for sedation mcg Nisa Pride RN 13:55:32 Fentanyl I.V. 100 Richard Buffie for sedation mcg Nisa Pride RN 13:57:21 Heparin Bolus I.V. 4000 Richard Buffie for verif ied units Nisa Pride RN anticoagulation with dr paula 14:13:57 Plavix P.O. 75 mg Richard Buffie for Nisa Pride RN antiplatelet therapy Procedure Log Time Note 13:22:45 Informed consent obtained and on chart 13:22:47 Admit Source: Other 13:23:09 Diagnostic Cath status Elective 13:23:11 Time tracking: Regular hours (M-F 7:00 - 5:00) 13:23:15 Plan of Care:Hemodynamics will remain stable., Cardiac rhythm will remain stable., Comfort level will be maintained., Respiratory function will remain adequate., Patient/ family verbilizes understanding of procedure., Procedure tolerated without complication., Recovers from procedure without complications.. 13:23:18 Evan CASON(R) sent for patient. Start room use. 13:23:23 H&P Date Dictated: 12/08/2018 Within 30 days and on chart.. 13:23:57 Lab Result : BUN 17 mg/dl 13:23:57 Lab Result : Creatinine 0.9 mg/dl 13:23:58 Lab Result : Hematocrit 42.1 % 13:23:58 Lab Result : Hemoglobin 15 g/dl 13:24:01 Lab results completed and on chart. 13:33:28 Patient allergic to No known allergies 13:34:26 Patient received from Pre/Post Procedure Room to [facility] 2 Alert and oriented. Tansferred to table in Supine position. 13:34:28 Warm blankets applied, and lindsey hugger turned on for patient comfort. 13:34:28 Correct patient and procedure confirmed by team. 13:34:29 ECG and BP/O2 sat monitors applied to patient. 13:44:12 Oxygen 2 l/min etCO2 Nasal cannula was administered by Alondra Pride RN; used for procedure; 13:44:26 Lidocaine 2% 20ml vial added to field was administered by Alondra Pride RN; used for procedure; 13:44:32 Heparin Flush Bag (1000units/500ml NS) 2 bags added to field was administered by Alondra Pride RN; used for procedure; 13:44:41 0.9% NaCl 100 ml/hr I.V. was administered by Alondra Pride RN; Per physician; 13:44:46 Vital chart was started 13:48:59 Baseline sample Acquired. 13:49:02 Rhythm: sinus rhythm 13:49:02 Full Disclosure recording started 13:49:03 Pre-procedure instructions explained to patient. 13:49:04 Pre-op teaching completed and patient verbalized understanding. 13:49:06 Family in patients room. 13:49:07 Patient NPO since Midnight. 13:49:09 Is patient on blood thinner?Yes 13:49:11 ACC The patient was administered the following blood thiners within the last 24 hours: ACCPlavix 13:49:13 Patient diabetic? No. 13:49:15 Previous problem with sedation/anesthesia? No ? 13:49:15 Snore? Yes 13:49:16 Sleep apnea? No 13:49:17 Deviated septum? No 13:49:18 Opens mouth fully? Yes 13:49:19 Sticks out tongue? Yes 13:49:21 Airway obstruction? No ? 13:49:25 Dentures? No ? 13:49:29 Pre procedure: right dorsailis pedis pulse 2+ Normal; easily identifiable; not easily obliterated 13:49:34 Pre procedure: left dorsailis pedis pulse 2+ Normal; easily identifiable; not easily obliterated 13:49:37 Patient pain scale 0/10 ?. 13:49:40 IV patent on arrival in right hand with 0.9% NaCl at [facility]. 13:49:43 Lab results completed and on chart. 13:49:45 Bilateral groins area was prepped with chlora-prep and draped in sterile fashion 13:49:46 Alarms reviewed by R. N. 13:49:46 Sharps counted by scrub and verified by R.N. 13:49:47 --------ALL STOP TIME OUT------ 13:49:48 Final Timeout: patient, procedure, and site verified with staff and physician. All members of the team are in agreement. 13:49:50 Bilateral groins site verified by team. 13:49:54 Fire Safety Assessment: A--An alcohol-based skin anteseptic being used preoperatively., C--Open oxygen or nitrous oxide is being used., D--An ESU, laser, or fiber-optic light is being used. 13:49:57 Physical assessment completed. ASA score P 2 - A patient with mild systemic disease as per Richard Paula MD. 13:50:00 Sedation plan: IV Moderate Sedation Medication:Versed, Fentanyl 13:50:04 Use device set CATH PACK 13:50:05 ACIST Syringe (81956) opened to sterile field. 13:50:05 ACIST Hand Control (30974) opened to sterile field. 13:50:06 ACIST Manifold (09290) opened to sterile field. 13:50:06 Medline Cath Pack ([id number]) opened to sterile field. 13:50:06 Bag Decanter (2002S) opened to sterile field. 13:50:07 DIAGNOSTIC WIRE .035 260cm J wire (760516) opened to sterile field. 13:50:19 SHEATH 5FR Tiff (IGH817) opened to sterile field. 13:50:53 Versed 2 mg I.V. was administered by Alondra Pride RN; for sedation; 13:50:59 Fentanyl 100 mcg I.V. was administered by Alondra Pride RN; for sedation; 13:51:14 Procedure started. 13:52:31 Local anesthetic to right femoral artery with Lidocaine 2% by Richard Paula MD.INITIAL ACCESS ONLY 13:52:38 A 5 Fr sheath was inserted into the Right Femoral artery 13:52:50 A DIAGNOSTIC UF 5Fr catheter ([id number]) was advanced over the wire and used for Procedure. 13:54:46 Abdominal angiogram w/ runoff was performed. 13:54:49 Right leg runoff performed. 13:54:51 Left leg runoff performed. 13:55:22 SHEATH 6FR Tiff (RNA813) opened to sterile field. 13:55:22 SHEATH 6FR Destination (RSR01) opened to sterile field. 13:55:32 Fentanyl 100 mcg I.V. was administered by Alondra Pride RN; for sedation; 13:56:15 GLIDE WIRE Super Stiff Angled 260cm (DF4933) opened to sterile field. 13:56:49 GLIDE WIRE AROUND THE HORN 13:56:55 Catheter exchanged over wire. 13:57:02 Sheath upsized to a 6 Fr Long. 13:57:21 Heparin Bolus 4000 units I.V. was administered by Alondra Pride RN; for anticoagulation; verified with dr paula 13:59:15 CHOICE PT Extra Support J 300cm guide wire ([id number]) opened to sterile field. 13:59:26 INFLATOR Merit BasixCompak (QA0309) opened to sterile field. 14:00:06 CHOICES ES 300 wire advanced. 14:00:08 Wire advanced across lesion. 14:00:32 [place] IVUS Catheter (62136N) opened to sterile field. 14:00:45 IVUS catheter advanced over wire. 14:01:28 IVUS PASS TO THE MID SFA LESION PERFORMED 14:01:40 IVUS catheter removed over wire. 14:02:34 Procedure type changed to Cath procedure, Diagnostic procedure, Peripheral Cath Diagnostic Procedure, Senior Core Java Developer Peripheral Procedures, Cwnis-Hwwqsty-Pan-Off, Peripheral vascular Intervention, Angioplasty, Angioplasty Iliac Initial, Stent, Stent-Fem/Popw/plasty 14:05:12 Inflate balloon Inflation number: 1 A SABER 6.0 X 2 X 150 balloon ([id number]) was prepped and advanced across the Mid Femoral, Left, then inflated to 9 LON for 0:00 (min:sec). 14:05:29 Balloon removed over the wire. 14:06:22 SMART 6 X 40 X 120 stent ([id number]) was deployed across Mid Femoral, Left . 14:06:40 Stent catheter was removed intact over wire. 14:07:37 Inflation number: 2 The SABER 6.0 X 2 X 150 balloon ([id number]) was reinflated across the Mid Femoral, Left, to 14 LON for 0:00 (min:sec). 14:08:31 Inflation number: 1 The SABER 6.0 X 2 X 150 balloon ([id number]) was reinflated across the Proximal Common Iliac, Left, to 17 LON for 0:10 (min:sec). 14:09:33 Wire removed. 14:09:57 LONG SHEATH EXCHANGED TO A SHORT SHEATH 14:10:09 EXOSEAL 6Fr (EX600) opened to sterile field. 14:10:31 Sheath removed intact; hemostasis achieved with Exoseal to the Right Femoral artery. 14:11:10 Procedure ended.(Physican Out) 14:11:30 Fluoroscopy time 03.80 minutes. 14::33 Fluoroscopy dose: 189 mGy 14::33 Flurop Dose total: 189 14:11:37 Contrast amount:Isovue 300 106ml. 14:11:39 Sharps counted by scrub and verified by R.N. 14:11:41 Post-op/insertion site Right Femoral artery dressed using a 4 x 4 and Tegaderm. 14:11:44 Post-procedure physical assessment completed. ASA score P 2 - A patient with mild systemic disease as per Richard Paula MD. 14:11:46 Post procedure rhythm: sinus rhythm 14:11:48 Estimated blood loss: 10 ml 14:11:49 Post procedure instruction explained to patient.Patient verbalizes understanding. 14:11:50 Patient needs reinforcement of post procedure teaching. 14:13:34 Procedure and supply charges have been captured, reviewed, submitted and are correct. 14:13:36 Procedure Complication : No complications 14:13:39 Vital chart was stopped 14:13:39 See physician's report for complete and final results. 14:13:41 Report given to Pre/Post Procedure Room. 14:13:44 Patient transfered to Pre/Post Procedure Room with Bed. 14:13:46 Procedure ended. 14:13:46 Full Disclosure recording stopped 14:13:50 End room use (Document Last) 14:13:57 Plavix 75 mg P.O. was administered by Alondra Pride RN; for antiplatelet therapy; 14:16:40 FEMSTOP Gold (S16811) opened to sterile field. 14:16:53 Femstop placed over the right femoral artery at 180 mmHg. Hemostasis achieved. Intervention Summary Intervention Notes Time ActionType Lesion and Equipment Action# Pressure Duration Attributes Used 14:05:12 Inflate Mid SABER 6.0 X 1 9 00:00 balloon Femoral, 2 X 150 Left balloon ([id number]) 14:06:22 Deploy self Mid SMART 6 X 1 expanding Femoral, 40 X 120 stent Left stent ([id number]) 14:07:37 Reinflate Mid SABER 6.0 X 2 14 00:00 balloon Femoral, 2 X 150 Left balloon ([id number]) 14:08:31 Reinflate Proximal SABER 6.0 X 1 17 00:10 balloon Common 2 X 150 Iliac, Left balloon ([id number]) Device Usage Item Name Manufacture Quantity Catalog Number Hospital Part Current Minim al Lot# / Charge Number Stock Stock Serial# Code ACIST Acist 1 16921 275865 962320 199120 20 Syringe Medical (25364) Systems Inc ACIST Hand Acist 1 24280 148510 159680 537788 5 Control Medical (99332) Systems Inc ACIST Acist 1 69995 454385 551642 657390 5 Manifold Medical (81310) Systems Inc Medline Medline 1 [id number] 822923 20160 815981 5 Cath Pack ([id number]) Bag Microtek 1 2001S 068456 85384 599120 5 Decanter Medical Inc. (2001S) DIAGNOSTIC [place] 1 802816 072596 544768 660168 30 WIRE .035 260cm J wire (974492) SHEATH 5FR Terumo 1 JGG287 435953 074992 493408 5 Tiff (RRT934) DIAGNOSTIC Cardinal 1 091129W7 545911 464079 027164 10 UF 5Fr Health catheter (545800F9) SHEATH 6FR Terumo 1 MDR410 047429 900265 347690 40 Tiff (HFP027) SHEATH 6FR Terumo 1 RSR01 064354 92759 751099 5 Destination (RSR01) GLIDE WIRE Terumo 1 VM2328 071667 771510 809074 5 Super Stiff Angled 260cm (NG5635) CHOICE PT [place] 1 [id number] 221051 5 Extra Scientific Support J 300cm guide wire ([id number]) INFLATOR Merit 1 EQ9666 618169 558297 223640 15 [facility] Medical BasixCompak (EI0763) SABER 6.0 X Cardinal 1 [id number] 658498 945803 5 2 X 150 Health balloon ([id number]) [place] 1 76049G 496088 449042 484870 8 [place] IVUS Catheter (55595M) SMART 6 X Cardinal 1 [id number] 250926 269995 0 40 X 120 Health stent ([id number]) EXOSEAL 6Fr Cardinal 1 EX600 170382 172185 051898 10 (EX600) Health FEMSTOP [facility] [place] 1 F45704 874550 722047 463120 5 Gold (S39317) Signature Audit [place] Stage Time Signature Unsigned Intra-Procedure 12/08/2018 Amanda Pink 2:21:44 PM RT(R) Signatures Monitor : Amanda Pink Signature : RT Date : Time : [address] [address]
[~2018-12-08 08:15] MED LIST changes: +TENORMIN25 MG PO
[2018-12-08 09:27] VITALS: BP 187/98; Ht 172.7 cm; Wt 79.5 kg
[2018-12-08 09:34] LABS: BASOPHILS 0.2 % (0-2); EOSINOPHILS 2.1 % (0-7); HEMATOCRIT 42.1 % (42.0-54.0); IMMATURE GRANULOCYTES 0.3 % (0-5); LYMPHOCYTES 17.9 % (15-50); MCH 31.3 pg (26.0-34.0); MCHC 35.6 g/dL (31.0-37.0); MCV 87.7 fL (80.0-100.0); MEAN PLATELET VOLUME 9.6 fL (7.4-10.4); MONOCYTES 6.6 % (2-11); NEUTROPHILS 72.9 % (40-80); PLATELET COUNT 214 10x3/uL (130-400); RDW 12.8 % (11.5-14.5); WBC 11.7 10x3/uL (4.8-10.8)
[2018-12-08 09:43] LABS: CALC OSMOLALITY 279 mosm/kg (275-300); CALCIUM 9.1 mg/dL (8.5-10.1); CARBON DIOXIDE 24.4 mmol/L (21.0-32.0); CHLORIDE - SERUM 102 mmol/L (98-107); CREATININE - SERUM 0.9 mg/dL (0.6-1.3); GLUCOSE 107 mg/dL (74-106); POTASSIUM - SERUM 4.1 mmol/L (3.5-5.1); SODIUM 139 mmol/L (136-145); UREA NITROGEN 17 mg/dL (7-18); eGFR NON AFRICAN AMERICAN > 90 mL/min (90-120)
--- NOTE | 2018-12-08 14:38 | NUR ---
RECIEVED TO ROOM VIA STRETCHER FROM PRODUCT ACCOUNTANT WITH FEMSTOP TO R/GROIN CDI NO BLEEDING NOTED. PATIENT DENIED CHEST PAIN ON ARRIVAL. CONNECTED TO MONITOR FOR OBSERVATION WITH HR 88
--- NOTE | 2018-12-08 14:54 | NUR ---
DR ANDERSEN AT BEDSIDE. FEMSTOP REMAINS AT 159 WITH R/GROIN CDI NO BLEEDING NOTED
--- NOTE | 2018-12-08 15:06 | NUR ---
RESTING QUIETLY WITH NO DISTRESS FEMSTOP TO R/GROIN CDI NO BLEEDING CALL LIGHT IN REACH
--- NOTE | 2018-12-08 15:17 | NUR ---
PRESSURE ON FEMSTOP LOWERED TO 120 NO BLEEDING NOTED
--- NOTE | 2018-12-08 15:40 | NUR ---
PRESSURE TO FEMSTOP LOWERED TO 90 WITH NO BLEEDING OR HEMATOMA NOTED
--- NOTE | 2018-12-08 15:56 | NUR ---
R/GROIN REMAINS STABLE WITH PRESSURE TO FEMSTOP REMOVED. NO BLEEDING OR HEMATOMA. VSS AND CHEST PAIN IS DENIED
--- NOTE | 2018-12-08 16:38 | NUR ---
6 FR EXOSEAL R/GROIN REMAINS CDI WITH FEMSTOP REMOVED. R/FOOT WARM TO TOUCH WITH PULSES PALPABLE
--- NOTE | 2018-12-08 16:54 | NUR ---
REPOSITIONED TO HOB UP 20 FOR COMFORT WITH R/GROIN CDI CHEST PAIN IS DENIED.
--- NOTE | 2018-12-08 17:25 | NUR ---
I SPOKE WITH RAFAL, THE PT. . SHE WILL BE ON HER WAY TO THE HOSPITAL TO TAKE THE PT. HOME
--- NOTE | 2018-12-08 17:32 | NUR ---
PIV REMOVED. DISCHARGE INSTRUCTIONS REVIEWED WITH PT. RIGHT GROIN C/D/I. NO BLEEDING NO HEMATOMA
--- NOTE | 2018-12-08 18:15 | NUR ---
RIGHT GROIN C/D/I. NO BLEEDING. NO HEMATOMA. PT. VOIDED 200 CC YELLOW OUTPUT.
--- NOTE | 2018-12-08 18:28 | NUR ---
P. DISCHARGED HOME WITH FAMILY
--- NOTE | 2018-12-11 11:45 | HP ---
PATIENT: YOEL BERNABE MEDICAL RECORD: [id number] ACCOUNT: [id number] LOCATION:DILMA : 62 ADMISSION DATE: 12/08/18 PCP: LI KIMBROUGH DO HISTORY AND PHYSICAL EXAMINATION DIAGNOSES: 1. Angina. 2. Coronary artery disease. 3. Hypertension. 4. Hyperlipidemia. 5. Paroxysmal atrial fibrillation. 6. Smoking history. HISTORY: This is a gentleman who presents with anginal symptomatology, just like that of his previous angina in an escalating unstable fashion. PHYSICAL EXAMINATION: GENERAL APPEARANCE: Well-nourished, well-developed, appears stated age. Level of distress, comfortable. PSYCHIATRIC: Mental status, alert, normal affect. Orientation, oriented to time, place and person. EYES: Lids and conjunctiva, noninjected. No discharge, no pallor. ENT: Lips, teeth, gums, normal dentition. Oropharynx, no cyanosis, no pallor. NECK: Carotid arteries, bilateral normal upstroke, no bruits, no thrills. JUGULAR VEINS: No jugular venous pressure or distention. CERVICAL LYMPH NODES: Nontender, nonenlarged. THYROID: Not enlarged. Nontender. No nodules. LUNGS: Respiratory effort, unlabored. CHEST: Normal curvature. No thoracic deformity. No chest wall tenderness. Percussion, resonant. Auscultation, clear. No wheezes, no rales, no rhonchi. CARDIOVASCULAR: Precordial exam, nondisplaced. No heaves or pericardial thrills. Rate and rhythm, regular. Heart sounds, normal S1, normal S2. No S3, no gallop, no rub. Systolic murmur, not heard. Diastolic murmur, not heard. EXTREMITIES: No cyanosis, no edema. Peripheral pulses, full and equal in all extremities, except as noted. No bruits appreciated. ABDOMEN: Soft, nondistended. Normal aorta. No bruit. Nontender. No masses. Liver, nontender, no hepatomegaly. Spleen, nontender, no splenomegaly. MUSCULOSKELETAL: No joint tenderness. No joint swelling. No erythema. NEUROLOGICAL: Normal gait, normal strength, normal tone. SKIN: Warm and dry. OVERALL IMPRESSION: Angina in an escalating unstable fashion despite optimal medical therapy. We will proceed with coronary angiography. Further care depends upon findings of the angiography. TRANSINT:[id number] Voice Confirmation ID: [id number] DOCUMENT ID: [id number] HISTORY AND PHYSICAL [id number] YOEL BERNABE JEFFREY MD at 1145 CC: [id number] DICTATION DATE: 12/07/18 1218 DIAMOND POWDER MIXER: 12/07/18 1232 DEP CLI 12/08/18 [place] [id number] [place] [id number]
--- NOTE | 2018-12-11 11:46 | OP ---
PATIENT NAME: YOEL BERNABE MEDICAL RECORD: [id number] :62 LOCATION:D.CAT ADMISSION DATE: SURGEON: TOR ANDERSEN MD DATE OF OPERATION: 12/08/2018 PROCEDURES: 1. Stent placement, SFA, left. 2. DOOR MANAGER, SFA, left. 3. DOOR MANAGER, iliac, left. 4. Aortofemoral runoff. 5. Abdominal aortography. 6. Intravascular ultrasound. INDICATIONS: Claudication and peripheral vascular disease. PROCEDURE IN DETAIL: After informed consent was obtained with detailed explanation of risks and benefits as well as alternative therapies, the patient elected to proceed with angiogram and angioplasty. The right femoral area was prepped and draped in normal sterile fashion. Right femoral artery was cannulated via modified Seldinger technique with placement of 6-Trinidadian sheath. All catheters were exchanged through this sheath. FINDINGS: Abdominal aortography was performed. The catheter was pulled down for aortofemoral runoff. Abdominal aortography reveals no significant abdominal aortic disease. No dissection or annulus formation. RIGHT LEG: A. Iliac: The common internal and external iliacs have moderate irregularities, but no flow-limiting stenosis. B. Femoral system: The common and deep femoral are widely patent. Superficial femoral has 80+ percent stenosis in the mid distal vessel. C. Popliteal and infrapopliteal vessels are patent with good 3-vessel runoff to the foot, although mildly diffusely diseased. LEFT LEG: A. Iliac: The common iliac is open. The external iliac has previously placed stent with 70% in-stent restenosis. B. Femoral system: The common and deep femoral are widely patent. Superficial femoral has a previously placed stent. This is widely patent; however, there is greater than 75% stenosis proximal to the stent, confirmed by intravascular ultrasound. C. Popliteal and infrapopliteal vessels are patent, giving good peripheral 3-vessel runoff to the foot, although mildly diffusely diseased. DOOR MANAGER AND STENT OF THE LEFT SFA: The balloon used was a 6.0 balloon. This yielded suboptimal result with severe intimal dissection. Stenting was undertaken with a 6 x 40 SMART stent. Result was 0% residual stenosis. The 6.0 balloon was then used on the iliac for the in-stent restenosis there, taken to 21 atmospheres. Result was 0% residual. IMPRESSION: Successful DOOR MANAGER and stent of the left SFA and DOOR MANAGER of the left iliac, both going from 80% initial stenosis to 0% residual. TRANSINT:[id number] Voice Confirmation ID: [id number] DOCUMENT ID: [id number] OPERATIVE REPORT [id number] YOEL BERNABE, TOR OROZCO at 1146 CC: [id number] DICTATION DATE: 12/08/18 1416 SHREDDER/GRANULATOR OPERATOR: 12/08/18 2252 DEP CLI 12/08/18 [place] [id number] [place] [id number]
== END 2018-12-08 18:29 ==
LOC: D.CATH 08:15
PROVIDERS: ATTEND Internal Medicine Interventional Cardiology
DX: I70.212 Atherosclerosis of native arteries of extremities with intermittent claudication, left leg (principal); T82.856A Stenosis of peripheral vascular stent, initial encounter; I25.110 Atherosclerotic heart disease of native coronary artery with unstable angina pectoris; I10 Essential (primary) hypertension; E78.5 Hyperlipidemia, unspecified; I48.91 Unspecified atrial fibrillation; Z87.891 Personal history of nicotine dependence

== ENCOUNTER → 2019-07-11 17:32 | Outpatient (CLI) | payer BC ==
[2018-12-08 09:27] VITALS: BMI 26.6
== END | disposition home or self-care (01) ==
LOC: D.RAD 17:32
PROVIDERS: ATTEND Family Medicine
DX: M54.12 Radiculopathy, cervical region (principal)

== ENCOUNTER 2020-03-25 01:30 | Emergency (ER) | payer BC ==
[~2020-03-25] VITALS: Ht 172.7 cm; Wt 90.9 kg
[2020-03-25 01:37] VITALS: BP 188/91; Ht 172.7 cm; Wt 90.9 kg
[2020-03-25] MEDS ORDERED: ULTRAM50 MG PO (02:19)
== END 2020-03-25 02:29 | disposition home or self-care (01) ==
LOC: D.ER 01:30
DX: S62.001A Unspecified fracture of navicular [scaphoid] bone of right wrist, initial encounter for closed fracture (principal); S52.501A Unspecified fracture of the lower end of right radius, initial encounter for closed fracture; I10 Essential (primary) hypertension; Z72.0 Tobacco use; W22.8XXA Striking against or struck by other objects, initial encounter; Y93.9 Activity, unspecified; Y92.9 Unspecified place or not applicable

== ENCOUNTER 2020-03-28 10:13 | Day surgery (SDC) | payer BC ==
[~2020-03-28] VITALS: Ht 172.7 cm; Wt 79.4 kg
[~2020-03-28 10:13] MED LIST changes: +ULTRAM50 MG PO
[2020-03-28] MEDS ORDERED: ULTRAM50 MG PO (10:55)
[2020-03-28] MEDS ORDERED: HYDROCODON-ACE1 EA10 PO (11:30)
[2020-03-28 11:31] VITALS: BP 166/86; Ht 172.7 cm; Wt 79.4 kg
[2020-03-28 11:52] LABS: HEMATOCRIT 40.4 % (42.0-54.0); HEMOGLOBIN 13.8 g/dL (13.5-17.5); MCH 30.9 pg (26.0-34.0); MCHC 34.2 g/dL (31.0-37.0); MCV 90.6 fL (80.0-100.0); MEAN PLATELET VOLUME 9.4 fL (7.4-10.4); RBC 4.46 10x6/uL (4.20-6.10); RDW 12.7 % (11.5-14.5); WBC 8.7 10x3/uL (4.8-10.8)
--- NOTE | 2020-03-28 16:14 | NUR ---
1545-REMOVED IV WITH CATH INTACT,DISPOSED INTO SHARPS,COVERED WITH GUAZE,SECURED WITH MEDIPORE TAPE. DRESSING CDI,CAP REFILL WNL,WARM TO TOUCH,PALPABLE STRONG REGULAR RADIAL PULSE,ABLE TO WIGGLE DIGITS,SLIN IN PLACE.VSS.DENIES PAIN.NO N/V.
--- NOTE | 2020-03-28 16:15 | NUR ---
1550-REVIEWED POST OP INSTRUCTIONS AND FOLLOW UP APPOINTMENT. VERBALIZED UNDERSTANDING
--- NOTE | 2020-03-28 16:16 | NUR ---
1555-ESCORTED OUT VIA W/C WITH SPOUSE TO DRIVE HOME
--- NOTE | 2020-03-29 09:29 | OP ---
PATIENT NAME: KHALIF BERNABE MEDICAL RECORD: [id number] :62 LOCATION:[facility] ADMISSION DATE: SURGEON: KHALIF YANG DO DATE OF OPERATION: 03/28/2020 PROCEDURE PERFORMED: Right scaphoid open reduction and internal fixation of distal radial styloid open reduction internal fixation as well. PREOPERATIVE DIAGNOSIS: Right waist scaphoid fracture and a radial styloid fracture. POSTOPERATIVE DIAGNOSIS: Right waist scaphoid fracture and a radial styloid fracture. INDICATIONS: Mr. Bernabe is a 60-year-old right-hand dominant male who struck something with his hand and had hand pain. X-rays were taken and seen to have a minimally displaced mid pole scaphoid fracture and radial styloid fracture. I told him that these would heal better from the surgery. The likelihood of the scaphoid fracture healing is low in a 60-year-old and he wanted to get back to work as soon as he could. I said the best way to do that is surgery, but he would be a risk for malunion, nonunion and continued pain, loss in range of motion of the wrist and infection and bleeding. He is okay with that and he signed the consent. SURGEON: Khalif Yang DO DESCRIPTION OF PROCEDURE: The patient received a block by anesthesia in the preoperative area, taken to the operative suite, laid in supine position, given general anesthetic. Right upper extremity was then prepped and draped in sterile fashion. LMA had been placed after he was given a general anesthetic and a gram of Ancef. The right upper extremity was then exsanguinated with an Esmarch. Tourniquet was inflated to 250 mmHg, it was up for 40 minutes. I then began by making an incision over the dorsal wrist, right on the Walter's tubercle. Careful dissection was made down to the EPL tendon. This was pulled radially as well as the ECRB and ECRL. Common extensors were taken ulnarly. I then did an inverted T on the capsule opened it and exposed the scaphoid. I got a starting point on x-ray and then inserted the K-wire. Once it was in good position on AP and lateral, I used a measuring device into the 22 screw. First, we used a mini screw and ended up going to microscrew due to length. I then used the drill and drilled the proximal part of the scaphoid. I then entered first, a 20 mini and then saw that was not going to be adequate and then redrilled with a microdrill and then used a 22 micro screw and had nice compression with it. It was confirmed to be in good position on AP and lateral. I then addressed the radial styloid and put a K-wire through it. Once it was in good position, measured to be a 30. A standard 30 Acutrak screw was then placed after overdrilling after a small incision had been made at the wrist and then was placed into the radius, reducing the fracture nicely. Once that was completed, the K-wire was removed and x-rays taken in AP and lateral confirmed to be in good position. The tourniquet was then let down. Any bleeding was coagulated with a pickup and Bovie. The capsule was then repaired with 2-0 Vicryl in a simple fashion. Then, I closed the skin with 4-0 Monocryl in inverted interrupted fashion and both sites and Steri-Strips placed on them. He was then dressed with Adaptic, 4 x 4s, cast padding and a thumb spica splint was placed, secured with an Jaquan wrap. He was awakened and taken to recovery in stable condition. OPERATIVE REPORT [id number] KHALIF BERNABE BLOOD LOSS: Minimal. COMPLICATION: None. TRANSINT:[id number] Voice Confirmation ID: [id number] DOCUMENT ID: [id number] KHAILF YANG DO at 0929 CC: [id number] DICTATION DATE: 03/28/20 1637 ANIMAL HUSBANDMAN: 03/29/20 0230 [facility] 03/28/20 [facility] [address] [place] [address]
== END 2020-03-28 15:55 | disposition home or self-care (01) ==
LOC: D.OPS 10:13
PROVIDERS: Anesthesiology; ATTEND Orthopaedic Surgery
DX: S62.001A Unspecified fracture of navicular [scaphoid] bone of right wrist, initial encounter for closed fracture (principal); S52.511A Displaced fracture of right radial styloid process, initial encounter for closed fracture; X58.XXXA Exposure to other specified factors, initial encounter; E78.5 Hyperlipidemia, unspecified; I10 Essential (primary) hypertension; Z72.0 Tobacco use

== ENCOUNTER → 2020-04-09 09:09 | Outpatient (CLI) | payer BC ==
[2020-03-28 11:31] VITALS: BMI 26.6
[~2020-04-09 09:09] MED LIST changes: +HYDROCODON-ACE1 EA10 PO
== END | disposition home or self-care (01) ==
LOC: D.CT 09:09
PROVIDERS: ATTEND Radiology Diagnostic Radiology
DX: I70.211 Atherosclerosis of native arteries of extremities with intermittent claudication, right leg (principal); R09.89 Other specified symptoms and signs involving the circulatory and respiratory systems

== ENCOUNTER 2020-05-02 09:58 | Outpatient (CLI) | payer BC ==
[~2020-05-02] VITALS: Ht 172.7 cm; Wt 79.5 kg
--- NOTE | ~2020-05-02 | HEMODYNAMI ---
PATIENT:YOEL BERNABE MEDICAL RECORD: [id number] : 62 [id number] ADMISSION DATE: 05/02/20 Generatedon:05/02/202012:59 Patient name: YOEL BERNABE Patient #: [id number] : 1960 Date of study: 05/02/2020 Page: Of Hemodynamic Procedure Report Patient Data Patient Demographics Procedure consent was obtained First Name: YOEL Gender: Male Last Name: SRINIVASA : 1960 [facility] Initial: Pankaj Age: 60 year(s) Patient #: [id number] Race: SSN: [id number] Additional ID: [id number] Contact details Address: [address] [place] [address] State: [place] City: [place] Zip code: [address] Past Medical History Allergies: No known allergies Admission Admission Data Admission Date: 05/02/2020 Admission Time: 9:58 Procedure Procedure Types Cath Procedure Peripheral Cath Diagnostic Procedure Epic Specialist Peripheral Procedures Abd/Extremity Extremities Right Lower Ext Arterio Procedure Description Procedure Date Procedure Date: 05/02/2020 Procedure Start Time: 12:07 Procedure Staff Name Function Joon Hyatt MD Performing Physician Dianna Williamson RT Fire Fighting Equipment Specialist Allen CANTU RN Nurse Gigi Bradshaw RT Scrub Procedure Data Cath Procedure Fluoroscopy Diagnostic fluoroscopy Total fluoroscopy Time: time: 11.3 min 11.3 min Diagnostic fluoroscopy Total fluoroscopy dose: dose: 1958 mGy 1959 mGy Contrast Material Contrast Material Type Amount (ml) Isovue 300 70 Entry Location Entry Primary Successful Side Size Upsize Upsize Entry Closure Succes sful Closure Location (Fr) 1 (Fr) 2 (Fr) Remarks Device Remarks Femoral Exoseal artery Diagnostic catheters Device Type Used For End Catheter Placement DIAGNOSTIC IMT 5Fr Abdominal Catheter ([id number]) aortogram with runoff Merit Impress KA2 5Fr 65CM catheter ([id number]) Procedure Medications Medication Administration Route Dosage Heparin Flush Bag added to field 2 bags (1000units/500ml NS) Lidocaine 1% added to field 20 Versed I.V. 1 mg Fentanyl I.V. 50 mcg Versed I.V. 0.5 mg Fentanyl I.V. 25 mcg Heparin Bolus I.V. 4000 units Benadryl I.V. 50 mg Versed I.V. 0.5 mg Fentanyl I.V. 25 mcg Heparin Bolus I.V. 2000 units Hemodynamics Rest Heart Rate: 56 (bpm) Snapshots Pre Cath Intra NCS Post Cath Vital Signs Time Heart Resp SPO2 etCO2 NIBP (mmHg) Rhythm Pain Sedation Rate (ipm) (%) (mmHg) Status Level (bpm) 11:56:37 58 21 98 28.6 173/95(144) NSR 0 (11) 9(A) , No pain 12:01:36 59 22 98 28.6 Auto NIBP NSR 0 (11) 9(A) off , No pain 12:05:19 63 23 98 27.8 171/98(143) NSR 0 (11) 9(A) , No pain 12:09:39 68 24 97 29.3 165/94(132) NSR 0 (11) 9(A) , No pain 12:13:55 72 16 97 30.8 139/92(122) NSR 0 (11) 9(A) , No pain 12:18:07 72 16 97 35.3 146/90(121) NSR 0 (11) 9(A) , No pain 12:22:21 70 15 97 36.1 154/93(126) NSR 0 (11) 9(A) , No pain 12:27:18 58 17 97 34.6 157/85(134) NSR 0 (11) 9(A) , No pain 12:31:34 68 18 97 34.6 161/94(136) NSR 0 (11) 9(A) , No pain 12:35:52 56 21 100 32.3 175/99(134) NSR 0 (11) 9(A) , No pain 12:40:16 71 18 99 33.8 162/97(141) NSR 0 (11) 9(A) , No pain 12:44:36 71 16 99 20.3 155/93(128) NSR 0 (11) 9(A) , No pain 12:48:52 70 17 99 33.8 174/93(130) NSR 0 (11) 9(A) , No pain 12:53:17 66 17 99 31.6 162/97(135) NSR 0 (11) 9(A) , No pain 12:57:37 66 17 100 29.3 165/91(122) NSR 0 (11) 9(A) , No pain Medications Time Medication Route Dose Verified Delivered Reason Notes Effectiveness by by 12:02:44 Heparin Flush added 2 Joon Dupree used for Bag to bags Edmar Hyatt procedure (1000units/500ml field MD OROZCO NS) 12:02:56 Lidocaine 1% added 20ml Joon Dupree for local to vial Edmar Hyatt anesthetic field MD OROZCO 12:06:26 Versed I.V. 1 mg Joon Villa for sedation Edmar CANTU MD RN 12:06:46 Fentanyl I.V. 50 Joon Holmanr for sedation mcg Edmar CANTU MD RN 12:09:07 Versed I.V. 0.5 Joon Holmanr for sedation mg Edmar CANTU MD RN 12:09:13 Fentanyl I.V. 25 Joon Holmanr for sedation mcg Edmar CANTU MD RN 12:11:46 Heparin Bolus I.V. 4000 Joon Villa for units Edmar martinez MD RN 12:17:30 Benadryl I.V. 50 mg Joon Villa Per physician Edmar CANTU MD RN 12:36:55 Versed I.V. 0.5 Joon Holmanr for sedation mg Edmar CANTU MD, RN 12:37:03 Fentanyl I.V. 25 Joon Villa for sedation mcg Edmar CANTU MD, RN 12:44:23 Heparin Bolus I.V. 2000 Joon Villa for units Edmar martinez MD hot room attendant Log Time Note 11:35:02 Use device set IR Diagnostic 11:36:39 SHEATH 5FR Universal (EDO278) opened to sterile field. 11:36:40 BENTSON 145cm wire ([id number]) opened to sterile field. 11:36:41 Micropuncture VSI 4FR kit opened to sterile field. 11:36:44 A DIAGNOSTIC IMT 5Fr Catheter ([id number]) was advanced over the wire an d used for Abdominal aortogram with runoff. 11:36:46 LISA 260 wire ([id number]) opened to sterile field. 11:36:47 Tegaderm 4 x 4 (1626W) opened to sterile field. 11:36:48 Sterile Angiographic Pack opened to sterile field. 11:36:49 Bag Decanter (2001S) opened to sterile field. 11:42:54 CXI SUPPORT .035 135 CM STR catheter ([id number]) opened to sterile field. 11:43:17 SHEATH 6FR Destination (RSR01) opened to sterile field. 11:43:42 ROADRUNNER .035 260 glide wire ([id number]) opened to sterile field. 11:44:05 - 11:44:10 Time tracking: Regular hours (M-F 7:00 - 5:00) 11:44:26 Plan of Care:Hemodynamics will remain stable., Cardiac rhythm will remain stable., Comfort level will be maintained., Respiratory function will remain adequate., Patient/ family verbilizes understanding of procedure., Procedure tolerated without complication., Recovers from procedure without complications.. 11:44:35 Patient received from Outpatients to IR Alert and oriented. Tansferred to table in Supine position. 11:44:38 Signed procedure consent form obtained from patient. 11:44:54 H&P Date Dictated: 05/02/2020 Within 30 days and on chart., H&P Addendum completed by physician on day of procedure. (MUST COMPLETE FOR ALL OUTPATIENTS). 11:44:57 Pre-procedure instructions explained to patient. 11:44:58 Pre-op teaching completed and patient verbalized understanding. 11:45:00 Family unavailable. 11:45:03 Patient NPO since Midnight. 11:45:12 Patient allergic to No known allergies 11:45:16 Is the patient allergic to Iodine/contrast media? No. 11:45:19 Is patient on blood thinner?Yes 11:45:26 Patient diabetic? No. 11:45:28 - 11:45:29 ----Pre-sedation anethsthesia assessment.---- 11:45:33 Previous problem with sedation/anesthesia? No ? 11:45:37 Snore? Yes 11:45:39 Sleep apnea? No 11:45:42 Deviated septum? No 11:45:44 Opens mouth fully? Yes 11:45:46 Sticks out tongue? Yes 11:45:49 Airway obstruction? No ? 11:45:55 Dentures? Yes out 11:46:03 Left groin area was prepped with chlora-prep and draped in sterile fashion 11:46:12 Fire Safety Assessment: A--An alcohol-based skin anteseptic being used preoperatively., C--Open oxygen or nitrous oxide is being used. 11:46:21 1) 90+ Normal kidney functon but urine findings or structural abnormalities or genetic trait point to kidney disease. 11:46:59 Pre procedure: right dorsailis pedis pulse 1+ Palpable, but thready & weak; easily obliterated 11:47:03 Pre procedure: left dorsailis pedis pulse 1+ Palpable, but thready & weak; easily obliterated 11:47:07 Pre procedure: right posterior tibial pulse Doppler 11:47:10 Pre procedure: left posterior tibial pulse Doppler 11:47:16 - 11:55:24 Vital chart was started 12:02:44 Heparin Flush Bag (1000units/500ml NS) 2 bags added to field was administered by Joon Hyatt MD; used for procedure; Verbal order read back and verified. 12:02:56 Lidocaine 1% 20ml vial added to field was administered by Joon sousa MD; for local anesthetic; Verbal order read back and verified. 12:06:07 Physician arrived 12:06:07 --------ALL STOP TIME OUT------ 12::08 Final Timeout: patient, procedure, and site verified with staff and physician. All members of the team are in agreement. 12:06:26 Versed 1 mg I.V. was administered by Allen CANTU RN; for sedation; Verbal order read back and verified. 12:06:46 Fentanyl 50 mcg I.V. was administered by Allen CANTU RN; for sedation; Verbal order read back and verified. 12::13 Procedure started. 12:: Full Disclosure recording started 12:07:19 Local anesthetic to left femerol artery with Lidocaine 1% by Joon Hyatt MD.INITIAL ACCESS ONLY 12:: Versed 0.5 mg I.V. was administered by Allen CANTU RN; for sedation; Verbal order read back and verified. 12:09:13 Fentanyl 25 mcg I.V. was administered by Allen CANTU RN; for sedation; Verbal order read back and verified. 12:11:46 Heparin Bolus 4000 units I.V. was administered by Allen CANTU RN; fo r anticoagulation; Verbal order read back and verified. 12:17:30 Benadryl 50 mg I.V. was administered by Allen CANTU RN; Per physician; Verbal order read back and verified. 12:28:49 A Energeno Impress KA2 5Fr 65CM catheter ([id number]) was advanced over the wire and used for . 12:31:16 INFLATOR BasixTOUCH ([id number]) opened to sterile field. 12:32:00 Baseline sample Acquired. 12:33:15 Inflate balloon Inflation number: 1 A Evercross 5 x 2 x 135 Balloon ([id number]) was prepped and advanced across the Undefined1 , then inflated . 12:36:55 Versed 0.5 mg I.V. was administered by Allen CANTU RN; for sedation; Verbal order read back and verified. 12:37:03 Fentanyl 25 mcg I.V. was administered by Allen CANTU RN; for sedation; Verbal order read back and verified. 12:43:57 Inflate balloon Inflation number: 1 A Evercross 7 x 8 x 135 Balloon ([id number]) was prepped and advanced across the Undefined2 , then inflated . 12:44:23 Heparin Bolus 2000 units I.V. was administered by Allen CANTU RN; fo r anticoagulation; Verbal order read back and verified. 12:47:24 SHEATH 6FR Universal (SEU508) opened to sterile field. 12:48:59 EXOSEAL 6Fr (EX600) opened to sterile field. 12:51:26 A sheath was inserted into the Femoral artery 12:51:26 Sheath removed intact; hemostasis achieved with Exoseal to the Femoral artery. 12:51:30 Procedure ended.(Physican Out) 12:53:10 Procedure and supply charges have been captured, reviewed, submitted an d are correct. 12:53:14 Report given to Outpatients. 12:53:33 Fluoroscopy time 11.30 minutes. 12:53:45 Fluoroscopy dose: 1958 mGy 12:53:45 Flurop Dose total: 1958 12:53:59 Contrast amount:Isovue 300 70ml. 12:59:03 Vital chart was stopped Intervention Summary Intervention Notes Time ActionType Lesion and Equipment Used Action# Pressure Duration Attributes 12:33:15 Inflate Undefined1 Evercross 5 x 2 1 0 00:00 balloon x 135 Balloon ([id number]) 12:43:57 Inflate Undefined2 Evercross 7 x 8 1 0 00:00 balloon x 135 Balloon ([id number]) Device Usage Item Name Manufacture Quantity Catalog Number Hospital Part Current M inimal Lot# / Charge Number Stock Stock Serial# Code SHEATH 5FR Terumo 1 [id number] 919809 257755 5 Universal ([id number]) BENTSON 145cm Cook Medical 1 [id number] 693419 757171 5 wire ([id number]) Micropuncture VSI VASCULAR 1 7266V 273083 216585 5 VSI 4FR kit SOLUTIONS DIAGNOSTIC IMT Pinckard 1 [id number] 073022 918211 64614 5 5Fr Catheter Scientific ([id number]) LISA 260 wire [employer] 1 D75795 025662 86014 046612 5 (A77784) Tegaderm 4 x 4 3M 1 1626W 860447 548818 539586 5 (1626W) Sterile Cardinal 1 [id number] 185191 635997 5 Angiographic Health Pack Bag Decanter Microtek 1 279295 00897 808070 5 (2001S) Medical Inc. CXI SUPPORT [employer] 1 [id number] 203115 686749 634127 5 .035 135 CM STR catheter ([id number]) SHEATH 6FR Terumo 1 RSR01 330665 56952 440902 5 Destination (RSR01) ROADRUNNER .035 [employer] 1 K73440 605392 136924 306793 5 260 glide wire (D13888) Merit Impress Merit 1 [id number] 737666 027037 5 KA2 5Fr 65CM Medical catheter ([id number]) INFLATOR Merit 1 XW6425 637632 193744 274865 5 FasterPants Medical (GJ3577) Evercross 5 x 2 Medtronic 1 [id number] 492459 192317 711470 5 x 135 Balloon ([id number]) Evercross 7 x 8 Medtronic 1 [id number] 595191 561457 756499 5 x 135 Balloon ([id number]) SHEATH 6FR Terumo 1 UTS422 098535 484418 890210 4 0 Universal (UXY303) EXOSEAL 6Fr Cardinal 1 EX600 101622 337245 124049 1 0 [id number] (EX600) Health Signature Audit Grant Stage Time Signature Unsigned Intra-Procedure 05/02/2020 Dianna Williamson 12:58:59 PM RT(R) [facility] [address] [place] [address]
[2020-05-02 10:23] LABS: CALC OSMOLALITY 280 mosm/kg (275-300); CALCIUM 9.2 mg/dL (8.5-10.1); CARBON DIOXIDE 25.9 mmol/L (21.0-32.0); CHLORIDE - SERUM 105 mmol/L (98-107); CREATININE - SERUM 0.9 mg/dL (0.6-1.3); GLUCOSE 98 mg/dL (74-106); POTASSIUM - SERUM 3.8 mmol/L (3.5-5.1); SODIUM 139 mmol/L (136-145); UREA NITROGEN 22 mg/dL (7-18); eGFR NON AFRICAN AMERICAN > 90 mL/min (90-120)
[2020-05-02 10:28] LABS: INR 0.88 (0.85-1.17); PROTIME 11.9 SECONDS (11.6-15.0)
[2020-05-02 10:41] VITALS: Ht 172.7 cm; Wt 79.5 kg
[2020-05-02 10:48] LABS: HEMATOCRIT 43.6 % (42.0-54.0); LYMPHOCYTES 28.7 % (15-50); MCH 30.4 pg (26.0-34.0); MCHC 34.4 g/dL (31.0-37.0); MCV 88.4 fL (80.0-100.0); MEAN PLATELET VOLUME 9.1 fL (7.4-10.4); NEUTROPHILS 62.7 % (40-80); PLATELET COUNT 232 10x3/uL (130-400); RBC 4.93 10x6/uL (4.20-6.10); RDW 12.8 % (11.5-14.5); WBC 12.1 10x3/uL (4.8-10.8)
--- NOTE | 2020-05-02 20:07 | NUR ---
1700 IV D/C'D WITH CANNULA INTACT. DISCHARGE INSTRUCTION GIVEN. AMBULATES WITHOUT DIFFICULTY. +CMS TO JODI. DENIES C/O.
== END 2020-05-02 17:15 | disposition home or self-care (01) ==
LOC: D.SP 09:58 → D.RAD 11:00 → D.SP 17:15
PROVIDERS: ATTEND Radiology Diagnostic Radiology
DX: I70.211 Atherosclerosis of native arteries of extremities with intermittent claudication, right leg (principal); I10 Essential (primary) hypertension; Z72.0 Tobacco use

== ENCOUNTER → 2020-07-10 07:35 | Outpatient (CLI) | payer BC ==
[2020-05-02 10:41] VITALS: BMI 26.6
== END | disposition home or self-care (01) ==
LOC: D.MRI 07:35
PROVIDERS: ATTEND Orthopaedic Surgery
DX: M54.12 Radiculopathy, cervical region (principal)

== ENCOUNTER 2021-02-23 10:52 | Emergency (ER) | payer BC ==
[~2021-02-23] VITALS: Ht 172.7 cm; Wt 88.6 kg
[2021-02-23 11:15] VITALS: BP 132/72; Ht 172.7 cm; Wt 88.6 kg
[2021-02-23 12:19] LABS: BILIRUBIN NEGATIVE (NEGATIVE); KETONE NEGATIVE (NEGATIVE); NITRITE NEGATIVE (NEGATIVE); UROBILINOGEN NORMAL mg/dL (< 2)
[2021-02-23 12:35] LABS: BASOPHILS 0 % (0-2); EOSINOPHILS 0.2 % (0-7); HEMATOCRIT 41.4 % (42.0-54.0); HEMOGLOBIN 14.1 g/dL (13.5-17.5); IMMATURE GRANULOCYTES 0.6 % (0-5); LYMPHOCYTE ABS# 0.69 10x3/uL (1.32-3.57); LYMPHOCYTES 5.5 % (15-50); MCH 29.6 pg (26.0-34.0); MCHC 34.1 g/dL (31.0-37.0); MEAN PLATELET VOLUME 9.3 fL (7.4-10.4); MONOCYTES 6.6 % (2-11); NEUTROPHIL ABS# 11.03 10x3/uL (1.78-5.38); NEUTROPHILS 87.1 % (40-80); PLATELET COUNT 248 10x3/uL (130-400); RBC 4.76 10x6/uL (4.20-6.10); RDW 12.4 % (11.5-14.5); WBC 12.7 10x3/uL (4.8-10.8)
[2021-02-23 12:53] LABS: CALC OSMOLALITY 281 mosm/kg (275-300); CALCIUM 8.7 mg/dL (8.5-10.1); CARBON DIOXIDE 24.6 mmol/L (21.0-32.0); CHLORIDE - SERUM 100 mmol/L (98-107); GLUCOSE 135 mg/dL (74-106); POTASSIUM - SERUM 3.4 mmol/L (3.5-5.1); SODIUM 136 mmol/L (136-145); UREA NITROGEN 36 mg/dL (7-18); eGFR NON AFRICAN AMERICAN 81 mL/min (90-120)
[2021-02-23 12:58] LABS: ALBUMIN 3.4 g/dL (3.4-5.0); ALKALINE PHOSPHATASE 79 U/L (30-120); ALT (SGPT) 42 U/L (10-68); BILIRUBIN - TOTAL 0.43 mg/dL (0.2-1.3); LIPASE 56 U/L (73-393); PROTEIN - SERUM 7.2 g/dL (6.4-8.2)
[2021-02-23] MEDS ORDERED: PHENERGAN25 M1 PO (13:55)
== END 2021-02-23 14:06 | disposition home or self-care (01) ==
LOC: D.ER 10:52
PROVIDERS: Emergency Medicine
DX: R11.2 Nausea with vomiting, unspecified (principal); T50.Z95A Adverse effect of other vaccines and biological substances, initial encounter; I10 Essential (primary) hypertension; Z95.5 Presence of coronary angioplasty implant and graft